=== PATIENT | female | born 1965 | race Caucasian/White ===

== ENCOUNTER 2017-12-14 22:00 | Inpatient (IN) | payer BC ==
[2017-12-14] MEDS ORDERED: Sodium Chloride 0.9% 10 ML Syringe FLUSH PRN (22:37)
[2017-12-14] MEDS ORDERED: Ondansetron 4 MG/2 ML SDV IVPUSH ONE ×2 (22:37→23:58)
[2017-12-14] MEDS ORDERED: Sodium Chloride 0.9% 1,000 ML IV ONE (22:54)
[2017-12-14] MEDS ORDERED: HYDROmorphone 1 MG/ML Syringe IVPUSH ONE (22:57)
[2017-12-14] MEDS ORDERED: cefTRIAXone 1 GM Vial IVPUSH ONE (23:00)
[2017-12-14] MEDS ORDERED: Iopamidol 612 MG/ML 100 ML Bottle IVPUSH ONE (23:01)
--- NOTE | 2017-12-14 23:01 | EDM.PDOC ---
ED HPI GENERAL MEDICAL PROBLEM - General Chief Complaint: Fever Stated Complaint: fever Time Seen by Provider: 12/14/17 22:35 Source of Information: Reports: Patient History Limitations: Reports: No Limitations - History of Present Illness INITIAL COMMENTS - FREE TEXT/NARRATIVE: Patient comes in to the emergency department with five-day history of fever up to 103-104, right lower quadrant pain decrease in urination, and body aches. Pt was seen in the clinic on Monday and was prescribed Bactrim also had CBC BMP and a urine to microscope completed. Diagnosis unexplained right lower quadrant pain with UTI. Patient was told to follow-up if not feeling better in a few days. Patient went back on Monday with increasing temperatures again right lower quadrant discomfort and decrease in urination. A second UA was completed with a urine culture at this appointment patient was switched to Cipro 500 mg twice a day for 7 days and was advised to stop the Bactrim. Again the patient had a CBC completed and was told to follow-up if not better in a few days. Pt presents tonight feeling worse and complains of the above symptoms. Last urination was greater than 30 hours ago. Denies any burning sensation or flank discomfort. Has been diaphoretic related to the discomfort and fever. Also becoming SOB with activity and right upper chest discomfort with deep breaths. Onset: Gradual Quality: Reports: Sharp Severity: Severe Improves with: Reports: Rest Worsens with: Reports: Movement Associated Symptoms: Reports: Diaphoresis, Fever/Chills, Malaise, Nausea/ Vomiting, Shortness of Breath (with activity ). Denies: Seizure Treatments PERIOPERATIVE TECH: Reports: Acetaminophen - Related Data Allergies Allergy/AdvReac Type Severity Reaction Status Date / Time codeine Allergy Stomach Verified 12/14/17 22:37 Upset Home Meds: Home Meds Albuterol [Proventil HFA] 2 puff INH Q4H PRN 03/07/14 [History] amLODIPine [Norvasc] 5 mg PO DAILY 03/07/14 [History] Gabapentin [Neurontin] 300 mg PO DAILY 09/19/16 [History] Metoprolol Succinate [Toprol XL] 25 mg PO DAILY 09/19/16 [History] buPROPion [Wellbutrin XL] 150 mg PO BEDTIME 09/19/16 [History] Past Medical History HEENT History: Reports: Impaired Vision Cardiovascular History: Reports: Hypertension Gastrointestinal History: Reports: Bowel Obstruction Other Genitourinary History: h Musculoskeletal History: Reports: Arthritis, RA Other Musculoskeletal History: knee pain Oncologic (Cancer) History: Reports: Breast - Past Surgical History HEENT Surgical History: Reports: Eye Surgery Female Surgical History: Reports: Breast Implant, Mastectomy Social & Family History - Tobacco Use Smoking Status *Q: Never Smoker Second Hand Smoke Exposure: No - Alcohol Use Days Per Week of Alcohol Use: 0 - Recreational Drug Use Recreational Drug Use: No ED ROS GENERAL - Review of Systems Review Of Systems: See Below Constitutional: Reports: Fever, Chills, Malaise, Diaphoresis, Decreased Appetite HEENT: Reports: No Symptoms Respiratory: Reports: No Symptoms Cardiovascular: Reports: No Symptoms Endocrine: Reports: No Symptoms GI/Abdominal: Reports: Abdominal Pain (RLQ), Decreased Appetite, Nausea. Denies : Black Stool, Bloody Stool, Diarrhea, Difficulty Swallowing, Distension, Mucous in Stool, Stool Incontinence, Vomiting : Reports: No Symptoms Musculoskeletal: Reports: No Symptoms Skin: Reports: Diaphoresis Neurological: Reports: No Symptoms Psychiatric: Reports: No Symptoms Hematologic/Lymphatic: Reports: No Symptoms Immunologic: Reports: No Symptoms ED EXAM, GENERAL - Physical Exam Exam: See Below Exam Limited By: No Limitations General Appearance: Alert, WD/WN, No Apparent Distress Head: Atraumatic, Normocephalic Neck: Normal Inspection, Supple, Non-Tender, Full Range of Motion Respiratory/Chest: No Respiratory Distress, Lungs Clear, Normal Breath Sounds, No Accessory Muscle Use, Chest Non-Tender. No: Respiratory Distress, Crackles, Rales, Rhonchi, Wheezing, Accessory Muscle Use Cardiovascular: Tachycardia GI/Abdominal: Guarding, Rebound, Tender Back Exam: Normal Inspection Extremities: Normal Inspection, Normal Range of Motion, Normal Capillary Refill Neurological: Alert, Oriented, CN II-XII Intact Skin Exam: Cool, Diaphoretic EKG INTERPRETATION EKG Date: 12/14/17 Rate (Beats/Min): 129 Course - Vital Signs Last Recorded V/S: Last Vital Signs Temp 38.1 C 12/15/17 00:10 Pulse 130 H 12/15/17 00:10 Resp 22 H 12/14/17 22:35 BP 152/74 H 12/15/17 00:10 Pulse Ox 96 12/15/17 00:10 - Orders/Labs/Meds Orders: Active Orders 24 hr Category Date Time Status Admission Status [Patient Status] [ADT] Routine ADT 12/15/17 01:23 Active EKG 12 Lead [EKG Documentation Completion] [RC] URGENT Care 12/14/17 23:27 Active Abdomen Pelvis w Cont [CT] Stat Exams 12/14/17 22:37 Taken Chest 2V [CR] Stat Exams 12/14/17 22:20 Taken CULTURE BLOOD [BC] Stat Lab 12/14/17 22:49 Results CULTURE BLOOD [BC] Stat Lab 12/14/17 22:55 Results Sodium Chloride 0.9% [Saline Flush] Med 12/14/17 22:37 Active 10 ml FLUSH ASDIRECTED PRN Blood Culture x2 Reflex Set [OM.PC] Stat Oth 12/14/17 22:46 Ordered Peripheral IV Insertion Adult [OM.PC] Routine Oth 12/14/17 22:37 Ordered Medication Orders Sodium Chloride (Saline Flush) 10 ml FLUSH ASDIRECTED PRN PRN Reason: Keep Vein Open Labs: Laboratory Tests 12/14/17 12/14/17 12/14/17 Range/Units 22:49 22:49 22:49 WBC 4.4 (4.0-10.0) x10^3/uL RBC 4.10 (4.00-5.50) x10^6/uL Hgb 13.0 (12.0-16.0) g/dL Hct 39.8 (33.0-47.0) % MCV 97.1 H (78.0-93.0) fL MCH 31.7 (26.0-32.0) pg MCHC 32.7 (32.0-36.0) g/dL RDW Coeff of [place] 13.2 (10.0-15.0) % Plt Count 214 (130-400) x10^3/uL Neut % (Auto) 54.8 (50.0-80.0) % Lymph % (Auto) 31.1 (25.0-50.0) % [place] % (Auto) 12.3 H (2.0-11.0) % Eos % (Auto) 1.6 (0.0-4.0) % Baso % (Auto) 0.2 (0.2-1.2) % Sodium 141 (136-145) mmol/L Potassium 4.2 (3.5-5.1) mmol/L Chloride 107 (98-107) mmol/L Carbon Dioxide 23 (21-32) mmol/L BUN 24 H (7-18) mg/dL Creatinine 0.7 (0.55-1.02) mg/dL Est Cr Clr Drug Dosing 88.01 mL/min Estimated GFR (MDRD) > 60 Glucose 104 (74-106) mg/dL Lactic Acid 2.4 H* (0.4-2.0) mmol/L Calcium 9.2 (8.5-10.1) mg/dL Corrected Calcium 10.32 H (8.5-10.1) mg/dL Total Bilirubin 0.7 (0.2-1.0) mg/dL AST 98 H (15-37) U/L ALT 96 H (14-59) U/L Alkaline Phosphatase 100 (46-116) U/L Troponin I < 0.017 (<=0.056) ng/mL Total Protein 6.8 (6.4-8.2) g/dL Albumin 2.6 L (3.4-5.0) g/dL Globulin 4.2 Albumin/Globulin Ratio 0.62 Urine Color (YELLOW) Urine Appearance (CLEAR) Urine pH (5.0-8.0) Ur Specific [place] Urine Protein (NEGATIVE) mg/dL Urine Glucose (UA) (NEGATIVE) mg/dL Urine Ketones (NEGATIVE) mg/dL Urine Occult Blood (NEGATIVE) Urine Nitrite (NEGATIVE) Urine Bilirubin (NEGATIVE) Urine Urobilinogen (0.2) EU/dL Ur Leukocyte Esterase (NEGATIVE) Urine RBC (NOT SEEN) /HPF Urine WBC (NOT SEEN) /HPF Ur Squamous Epith Cells (NEGATIVE) /HPF Urine Bacteria (NEGATIVE) /HPF Urine Mucus (NEGATIVE) /LPF 12/15/17 Range/Units 00:08 WBC (4.0-10.0) x10^3/uL RBC (4.00-5.50) x10^6/uL Hgb (12.0-16.0) g/dL Hct (33.0-47.0) % MCV (78.0-93.0) fL MCH (26.0-32.0) pg MCHC (32.0-36.0) g/dL RDW Coeff of [place] (10.0-15.0) % Plt Count (130-400) x10^3/uL Neut % (Auto) (50.0-80.0) % Lymph % (Auto) (25.0-50.0) % [place] % (Auto) (2.0-11.0) % Eos % (Auto) (0.0-4.0) % Baso % (Auto) (0.2-1.2) % Sodium (136-145) mmol/L Potassium (3.5-5.1) mmol/L Chloride (98-107) mmol/L Carbon Dioxide (21-32) mmol/L BUN (7-18) mg/dL Creatinine (0.55-1.02) mg/dL Est Cr Clr Drug Dosing mL/min Estimated GFR (MDRD) Glucose (74-106) mg/dL Lactic Acid (0.4-2.0) mmol/L Calcium (8.5-10.1) mg/dL Corrected Calcium (8.5-10.1) mg/dL Total Bilirubin (0.2-1.0) mg/dL AST (15-37) U/L ALT (14-59) U/L Alkaline Phosphatase (46-116) U/L Troponin I (<=0.056) ng/mL Total Protein (6.4-8.2) g/dL Albumin (3.4-5.0) g/dL Globulin Albumin/Globulin Ratio Urine Color Yellow (YELLOW) Urine Appearance Slightly cloudy H (CLEAR) Urine pH 5.5 (5.0-8.0) Ur Specific [place] 1.025 Urine Protein 30 H (NEGATIVE) mg/dL Urine Glucose (UA) Negative (NEGATIVE) mg/dL Urine Ketones 15 H (NEGATIVE) mg/dL Urine Occult Blood Negative (NEGATIVE) Urine Nitrite Negative (NEGATIVE) Urine Bilirubin Large H (NEGATIVE) Urine Urobilinogen 1.0 (0.2) EU/dL Ur Leukocyte Esterase Negative (NEGATIVE) Urine RBC 0-5 (NOT SEEN) /HPF Urine WBC 0-5 (NOT SEEN) /HPF Ur Squamous Epith Cells Moderate H (NEGATIVE) /HPF Urine Bacteria Moderate H (NEGATIVE) /HPF Urine Mucus Few H (NEGATIVE) /LPF Meds: Medications Generic Name Dose Route Start Last Admin Trade Name Freq PRN Reason Stop Dose Admin Sodium Chloride 10 ml 12/14/17 22:37 Saline Flush FLUSH ASDIRECTED PRN Keep Vein Open Discontinued Medications Generic Name Dose Route Start Last Admin Trade Name Allison PRN Reason Stop Dose Admin Ceftriaxone Sodium 1 gm 12/14/17 23:00 12/14/17 23:57 Rocephin IVPUSH 12/14/17 23:01 1 gm ONETIME ONE Administration Hydromorphone HCl 0.5 mg 12/14/17 22:57 12/14/17 23:05 Dilaudid IVPUSH 12/14/17 22:58 0.5 mg ONETIME ONE Administration Hydromorphone HCl 0.5 mg 12/14/17 23:58 12/15/17 00:11 Dilaudid IM 12/14/17 23:59 0.5 mg ONETIME ONE Administration Sodium Chloride 1,000 mls @ 1,000 mls/hr 12/14/17 22:54 12/14/17 22:56 Normal Saline IV 12/14/17 23:53 1,000 mls/hr ONETIME ONE Administration Vancomycin HCl 1,500 mg/ 250 mls @ 167 mls/hr 12/14/17 22:58 12/15/17 00:16 Sodium Chloride IV 12/15/17 00:27 167 mls/hr ONETIME ONE Administration Sodium Chloride 1,000 mls @ 1,000 mls/hr 12/15/17 00:06 12/15/17 01:14 Normal Saline IV 12/15/17 01:05 1,000 mls/hr ONETIME ONE Administration Iopamidol 100 ml 12/14/17 23:01 12/14/17 23:13 Isovue-300 (61%) IVPUSH 12/14/17 23:02 100 ml ONETIME ONE Administration Ondansetron HCl 4 mg 12/14/17 22:37 12/14/17 23:01 Zofran IVPUSH 12/14/17 22:38 4 mg ONETIME ONE Administration Ondansetron HCl 4 mg 12/14/17 23:58 12/15/17 00:02 Zofran IVPUSH 12/14/17 23:59 4 mg ONETIME ONE Administration - Radiology Interpretation Free Text/Narrative:: negative findings CT Results Date: 12/15/17 - Re-Assessments/Exams Free Text/Narrative Re-Assessment/Exam: 12/15/17 00:05 Pt continues to have pain RLQ. Second order of dilaudid provided. Pt experiencing nausea after Rocephin a second dose of zofran given. Pt will try to urinate first 1L NS completed 12/15/17 00:06 Departure - Departure Time of Disposition: 01:55 Disposition: Admitted As Inpatient 66 Clinical Impression: Fever and chills, Elevated lactic acid level, Tachycardia, Complicated urinary tract infection - Discharge Information Referrals: Amna Justin MD [Primary Care Provider] - Forms: ED Department Discharge - Problem List Review Problem List Initiated/Reviewed/Updated: Yes - My Orders Last 24 Hours: My Active Orders 12/14/17 22:20 Chest 2V [CR] Stat 12/14/17 22:37 Abdomen Pelvis w Cont [CT] Stat Sodium Chloride 0.9% [Saline Flush] 10 ml FLUSH ASDIRECTED PRN Peripheral IV Insertion Adult [OM.PC] Routine 12/14/17 22:46 Blood Culture x2 Reflex Set [OM.PC] Stat 12/14/17 22:49 CULTURE BLOOD [BC] Stat 12/14/17 22:55 CULTURE BLOOD [BC] Stat 12/14/17 23:27 EKG 12 Lead [EKG Documentation Completion] [RC] URGENT 12/15/17 01:23 Admission Status [Patient Status] [ADT] Routine - Assessment/Plan Last 24 Hours: My Active Orders 12/14/17 22:20 Chest 2V [CR] Stat 12/14/17 22:37 Abdomen Pelvis w Cont [CT] Stat Sodium Chloride 0.9% [Saline Flush] 10 ml FLUSH ASDIRECTED PRN Peripheral IV Insertion Adult [OM.PC] Routine 12/14/17 22:46 Blood Culture x2 Reflex Set [OM.PC] Stat 12/14/17 22:49 CULTURE BLOOD [BC] Stat 12/14/17 22:55 CULTURE BLOOD [BC] Stat 12/14/17 23:27 EKG 12 Lead [EKG Documentation Completion] [RC] URGENT 12/15/17 01:23 Admission Status [Patient Status] [ADT] Routine Assessment:: 1. Severe RLQ abd pain x5 days 2. Unknown etiology of Fever x5 and continues to remain up to 103-104 despite abx treatment 3. Reduced urine output. UA in clinic- WBC 6-10, epithelial cells many, bacteria >50, cast hyaline 3-5, cast Granular 0-2, Bilirubin large, ketone 80. Negative blood, Protein 30mg/dl. Pt was given Bactrim on 12-11 and switched to cipro on 12/13 due to pt not feeling better. CBC and CMP completed in clinic were essentially negative. Plan: 1. Chest xray completed and reviewed with pt 2. IV inserted in ER 3. IV fluid bolus completed 4. Pain medications provided 5. Records requested from [facility] 6. Labs completed in ER 7. Sepsis protocol utilized for pt has rapid pulse, increased respirations, diaphoresis, and fever for past 5 days. 52-year-old female given to the emergency Department with the above signs and symptoms. Upon arrival to the emergency department patient was given a fluid bolus, chest x-ray ,CT of the abdomen and pelvis, and labs. CT results were inconclusive, urine shows an UTI-consistent with her last 2 UAs that have been completed earlier in the week however the prelim of the urine culture is showing no growth currently. Sepsis protocol was followed based on patient's presentation (rapid pulse, increased respiratory rate, and fever despite taking fever reducing medication and diaphoretic). Patient was given vancomycin and Rocephin along with Dilaudid and Zofran for pain and nausea control in the ER. Patient's heart rate remained elevated throughout the emergency stay ranging from 110s to 130s. After antibiotic was given approximately 1 hour along with pain medication patient's heart rate rested in the 110s. Patient's fever was reduced by taking Tylenol prior to arrival-she did not need any fever reduction medications in the emergency department. Patient received 1 L fluid bolus with a second liter hanging upon admitted to the floor. Contact was made with [facility] in [place] with Dr. Wilks hospitalist who suggested admitting the patient acute-care in our facility and monitor patient's response to the IV antibiotics and fever control. Currently he would not recommend any further recommendations or specialty consultation despite the elevated lactic acid, elevated LFTs, increased heart rate, and multiple antibiotic trials in the outpatient setting. Dr. Goodwin was contacted who is graciously accepted the care of the patient for further monitoring and management. Patient will be admitted inpatient status.
[2017-12-14 23:31] LABS: CHLORIDE,CL 107 mmol/L (98-107); SODIUM,NA 141 mmol/L (136-145)
[2017-12-14] MEDS ORDERED: HYDROmorphone 1 MG/ML Syringe IM ONE (23:58)
[2017-12-15] MEDS ORDERED: Sodium Chloride 0.9% 1,000 ML IV ONE (00:06)
[2017-12-15] MEDS ORDERED: Sodium Chloride 0.9% 1,000 ML IV SCH (04:15)
[2017-12-15] MEDS ORDERED: HYDROmorphone 1 MG/ML Syringe IVPUSH ONE (04:29)
[2017-12-15 07:18] LABS: CHLORIDE,CL 110 mmol/L (98-107); SODIUM,NA 141 mmol/L (136-145)
--- NOTE | 2017-12-15 07:34 | PCM.HP ---
H&P History of Present Illness - General Date of Service: 12/15/17 Admit Problem/Dx: Admission Diagnosis/Problem Admission Diagnosis/Problem UTI, Urinary tract infectious disease Source of Information: Patient History Limitations: Reports: No Limitations - History of Present Illness Initial Comments - Free Text/Narative: Ms. Jackson is a 52 yo female who presented to the ER for evaluation of ongoing fever over the past 5 days. Tmax 104.2. Temps have consistently been running in the 101-104 range; she can get them down to 99 with tylenol but then they increase again. She has also had subjective fever and chills. She has had some right flank pain that has not been worsening over the past 2-3 days. Pain is consistent but she also notes that she is gassy. Her last bowel movement was 3 days ago and she typically goes every other day. Her bowel movement 3 days ago was a large amount of diarrhea. She vomited last night in the ER after her dose of ceftriaxone but otherwise has not had any vomiting. No blood in the emesis or the stool. She had been seen in clinic twice over the past week and diagnosed with a UTI. She was started on bactrim on 12/11 and then transitioned to ciprofloxacin 12/13. Due to ongoing symptoms, she presented to the ER. She denies any dysuria, frequency, or urgency over the course of this week. She has had decreased urine output compared to usual but has not been eating and drinking very well. She denies any previous UTI, at least in the recent past. Yesterday, she did note some dyspnea on exertion when she tried to get out and run some errands. Separate to this, she had some left shoulder pain radiating down the arm. This occurred on 2 occasions yesterday (am and around noon) and both were at rest. No chest pain with this. She has struggled with bilateral knee DJD and this has been slightly worse over the past few weeks. She was started on tramadol by her PCP with some relief in symptoms. She has been more itchy but has had no rash. She has not had any increased muscle tension, stiffness, or myalgias. Right Lower Abdominal Pain Score (Numeric/FACES): 6 - Related Data Allergies/Adverse Reactions: Allergies Allergy/AdvReac Type Severity Reaction Status Date / Time codeine Allergy Stomach Verified 12/14/17 22:37 Upset Home Medications: Home Meds Albuterol [Proventil HFA] 2 puff INH Q4H PRN 03/07/14 [History] amLODIPine [Norvasc] 5 mg PO DAILY 03/07/14 [History] Gabapentin [Neurontin] 300 mg PO DAILY 09/19/16 [History] Metoprolol Succinate [Toprol XL] 25 mg PO DAILY 09/19/16 [History] buPROPion [Wellbutrin XL] 150 mg PO BEDTIME 09/19/16 [History] Past Medical History HEENT History: Reports: Impaired Vision Cardiovascular History: Reports: CAD, High Cholesterol, Hypertension Respiratory History: Reports: SOB Gastrointestinal History: Reports: Bowel Obstruction, Chronic Constipation, GERD Genitourinary History: Reports: Chronic Renal Insuffiency Musculoskeletal History: Reports: Arthritis Other Musculoskeletal History: knee pain Neurological History: Reports: None Psychiatric History: Reports: Anxiety, Depression Endocrine/Metabolic History: Reports: Obesity/BMI 30+ Hematologic History: Reports: None Oncologic (Cancer) History: Reports: Breast Dermatologic History: Reports: None - Infectious Disease History Infectious Disease History: Reports: Chicken Pox - Past Surgical History HEENT Surgical History: Reports: Eye Surgery GI Surgical History: Reports: Cholecystectomy Female Surgical History: Reports: Breast Implant, Cystectomy, Mastectomy Social & Family History - Family History Cardiac: Reports: CAD, [place] Musculoskeletal: Reports: Arthritis Neurological: Reports: CVA Endocrine/Metabolic: Reports: Diabetes, type II - Tobacco Use Smoking Status *Q: Never Smoker Second Hand Smoke Exposure: No - Caffeine Use Caffeine Use: Reports: Soda - Alcohol Use Alcohol Use History: No Days Per Week of Alcohol Use: 0 Alcohol Use in Last Twelve Months: No - Recreational Drug Use Recreational Drug Use: No - Living Situation & Occupation Living situation: Reports: , with Family (17 year old daughter) Occupation: Employed ([employer]) H&P Review of Systems - Review of Systems: Review Of Systems: See Below General: Reports: Fever, Chills, Malaise, Decreased Appetite HEENT: Reports: No Symptoms Pulmonary: Reports: Shortness of Breath. Denies: Pleuritic Chest Pain, Cough Cardiovascular: Reports: No Symptoms Gastrointestinal: Reports: Abdominal Pain, Diarrhea, Nausea, Vomiting Genitourinary: Reports: No Symptoms Musculoskeletal: Reports: No Symptoms Skin: Reports: No Symptoms Psychiatric: Reports: No Symptoms Neurological: Reports: No Symptoms Exam - Exam Exam: See Below - Vital Signs Vital Signs: Last Vital Signs Temp 37.1 C 12/15/17 06:00 Pulse 95 12/15/17 06:00 Resp 20 12/15/17 06:00 BP 102/49 L 12/15/17 06:00 Pulse Ox 97 12/15/17 07:09 Weight: 122.924 kg - Exam General: Alert, Oriented, Cooperative HEENT: Conjunctiva Clear, Mucosa Moist & [place], Pupils Equal, Pupils Reactive Neck: Supple, Trachea Midline. No: Lymphadenopathy, Thyromegaly Lungs: Clear to Auscultation, Normal Respiratory Effort Cardiovascular: Regular Rhythm, Normal S1, Normal S2, Tachycardia. No: Systolic Murmur, Diastolic Murmur GI/Abdominal Exam: Normal Bowel Sounds, Soft, No Organomegaly, No Distention, No Mass, Other (tenderness to palpation in the right lateral abdominal wall; no CVA or true RLQ tenderness; negative Butler's; no McBurney point tenderness; no rebound, rigidity, or guarding) Extremities: Normal Inspection, Non-Tender, No Pedal Edema, Normal Capillary Refill Peripheral Pulses: 2+: Radial (L), Radial (R) Skin: Warm, Intact, Moist - Patient Data Lab Results Last 24 hrs: Laboratory Results - last 24 hr 12/15/17 12/15/17 12/15/17 Range/Units 06:15 06:15 06:15 WBC 3.9 L (4.0-10.0) x10^3/uL RBC 3.31 L (4.00-5.50) x10^6/uL Hgb 10.4 L D (12.0-16.0) g/dL Hct 33.0 (33.0-47.0) % MCV 99.7 H (78.0-93.0) fL MCH 31.4 (26.0-32.0) pg MCHC 31.5 L (32.0-36.0) g/dL RDW Coeff of [place] 13.2 (10.0-15.0) % Plt Count 172 (130-400) x10^3/uL Neut % (Auto) 60.7 (50.0-80.0) % Lymph % (Auto) 23.6 L (25.0-50.0) % [place] % (Auto) 14.1 H (2.0-11.0) % Eos % (Auto) 1.3 (0.0-4.0) % Baso % (Auto) 0.3 (0.2-1.2) % Sodium 141 (136-145) mmol/L Potassium 4.2 (3.5-5.1) mmol/L Chloride 110 H (98-107) mmol/L Carbon Dioxide 23 (21-32) mmol/L BUN 19 H (7-18) mg/dL Creatinine 0.6 (0.55-1.02) mg/dL Est Cr Clr Drug Dosing 94.71 mL/min Estimated GFR (MDRD) > 60 Glucose 95 (74-106) mg/dL Lactic Acid 0.8 (0.4-2.0) mmol/L Calcium 8.3 L (8.5-10.1) mg/dL Corrected Calcium 9.82 (8.5-10.1) mg/dL Total Bilirubin 0.5 (0.2-1.0) mg/dL AST 67 H (15-37) U/L ALT 71 H (14-59) U/L Alkaline Phosphatase 83 (46-116) U/L C-Reactive Protein (<=0.9) mg/dL Total Protein 5.8 L (6.4-8.2) g/dL Albumin 2.1 L (3.4-5.0) g/dL Globulin 3.7 Albumin/Globulin Ratio 0.57 //18 Range/Units 06:15 WBC (4.0-10.0) x10^3/uL RBC (4.00-5.50) x10^6/uL Hgb (12.0-16.0) g/dL Hct (33.0-47.0) % MCV (78.0-93.0) fL MCH (26.0-32.0) pg MCHC (32.0-36.0) g/dL RDW Coeff of [place] (10.0-15.0) % Plt Count (130-400) x10^3/uL Neut % (Auto) (50.0-80.0) % Lymph % (Auto) (25.0-50.0) % [place] % (Auto) (2.0-11.0) % Eos % (Auto) (0.0-4.0) % Baso % (Auto) (0.2-1.2) % Sodium (136-145) mmol/L Potassium (3.5-5.1) mmol/L Chloride (98-107) mmol/L Carbon Dioxide (21-32) mmol/L BUN (7-18) mg/dL Creatinine (0.55-1.02) mg/dL Est Cr Clr Drug Dosing mL/min Estimated GFR (MDRD) Glucose (74-106) mg/dL Lactic Acid (0.4-2.0) mmol/L Calcium (8.5-10.1) mg/dL Corrected Calcium (8.5-10.1) mg/dL Total Bilirubin (0.2-1.0) mg/dL AST (15-37) U/L ALT (14-59) U/L Alkaline Phosphatase (46-116) U/L C-Reactive Protein 0.6 (<=0.9) mg/dL Total Protein (6.4-8.2) g/dL Albumin (3.4-5.0) g/dL Globulin Albumin/Globulin Ratio Result Diagrams: 12/15/17 06:15 12/15/17 06:15 *Q Meaningful Use (ADM) - VTE *Q VTE Criteria *Q: - Stroke *Q Stroke Criteria *Q: - AMI *Q AMI Criteria *Q: - Problem List (1) SIRS (systemic inflammatory response syndrome) SNOMED Code(s): 197755141 ICD Code: R65.10 - SIRS OF NON-INFECTIOUS ORIGIN W/O ACUTE ORGAN DYSFUNCTION Status: Acute Current Visit: Yes Problem Details: - Meets SIRS criteria with fever and tachycardia. WBC normal. - Overall, seems more consistent with a viral syndrome. Main differential at this point would be PE in light of her shortness of breath and tachycardia. Consider serotonin syndrome or other more uncommon etiology but she does not have other symptoms to suggest this. - She has had no UTI symptoms and her right side pain seems more in an MSK location, especially with a negative CT scan. Otherwise, she has no symptoms of a focal bacterial infection. - Will check CRP today to help clarify. - If CRP is normal, will hold off on further antibiotics and see how she does throughout the next 24 hours. - If abnormal, will continue antibiotics. - Blood cultures are pending. - Her vitals are stable and lactate is normal; therefore, will d/c IV fluids and see how she does with drinking fluids today. (2) Elevated lactic acid level SNOMED Code(s): 9085624 ICD Code: R79.89 - OTHER SPECIFIED ABNORMAL FINDINGS OF BLOOD CHEMISTRY Status: Acute Current Visit: Yes Problem Details: - Lactate high on ER presentation. - Down to normal on recheck this am. - Likely secondary to dehydration. Does not seem to be reflecting end organ damage. - D/C IV fluids today and allow her to drink ad karli. (3) Dyspnea on exertion SNOMED Code(s): 42609772 ICD Code: R06.09 - OTHER FORMS OF DYSPNEA Status: Acute Current Visit: Yes Problem Details: - Has had this in the past with negative work-ups. - Possibly related to SIRS or tachycardia in and of itself. See below for rule out of any acute cardiac process. CXR does not show pneumonia and she has no symptoms for pneumonia. - However, as above, considering PE as a potential diagnosis in light of risk factor of being on tamoxifen. - D-dimer will be obtained as she is overall low risk. If this is positive, she understands a CT chest will be needed. - Will see how she does walking today and consider further work-up if this persists. (4) Complicated urinary tract infection SNOMED Code(s): 94491060 ICD Code: N39.0 - URINARY TRACT INFECTION, SITE NOT SPECIFIED Status: Acute Current Visit: Yes Problem Details: - She was diagnosed with a UTI earlier in the week. - She has received 5 days of antibiotic coverage for this, which is more than adequate considering her culture is negative. - Will follow-up on final culture results. - See above for details on any further antibiotics. (5) Hypertension SNOMED Code(s): 67154889 ICD Code: I10 - ESSENTIAL (PRIMARY) HYPERTENSION Status: Chronic Current Visit: Yes Problem Details: - BP slightly low this am. - Continue metoprolol. Will hold amlodipine for now. Qualifiers: Hypertension type: essential hypertension Qualified Code(s): I10 - Essential (primary) hypertension (6) Coronary artery disease SNOMED Code(s): 47542120 ICD Code: I25.10 - ATHSCL HEART DISEASE OF [place] CORONARY ARTERY W/O ANG PCTRS Status: Chronic Current Visit: Yes Problem Details: - Shoulder pain described is not consistent with an acute cardiac process. - Her EKG was fine and troponin negative at least 6 hours after initial symptoms. - Continue home medications. Qualifiers: Coronary Disease-Associated Artery/Lesion type: [place] artery [place] vs. transplanted heart: [place] heart Associated angina: without angina Qualified Code(s): I25.10 - Atherosclerotic heart disease of [place] coronary artery without angina pectoris (7) Osteoarthritis SNOMED Code(s): 371935073 ICD Code: M19.90 - UNSPECIFIED OSTEOARTHRITIS, UNSPECIFIED SITE Status: Chronic Current Visit: Yes Problem Details: - Continue voltaren gel and etodolac. Hold tramadol and tizanidine. Qualifiers: Osteoarthritis location: multiple joints Osteoarthritis type: primary Qualified Code(s): M15.0 - Primary generalized (osteo)arthritis (8) IBS (irritable bowel syndrome) SNOMED Code(s): 66194346 ICD Code: K58.9 - IRRITABLE BOWEL SYNDROME WITHOUT DIARRHEA Status: Chronic Current Visit: Yes Problem Details: - Continue amitiza. Qualifiers: Irritable bowel syndrome type: unspecified Qualified Code(s): K58.9 - Irritable bowel syndrome without diarrhea (9) History of breast cancer SNOMED Code(s): 150959817 ICD Code: Z85.3 - PERSONAL HISTORY OF MALIGNANT NEOPLASM OF BREAST Status: Chronic Current Visit: Yes Problem Details: - If work-up negative for PE, then will continue tamoxifen. - If positive, will hold and talk with her oncologist. Problem List Initiated/Reviewed/Updated: Yes Orders Last 24hrs: Active Orders 24 hr Category Date Time Status Patient Status [ADT] Routine ADT 12/15/17 02:02 Active Cardiac Monitoring [RC] 06,10,14,18,22,02 Care 12/15/17 02:05 Active Notify Provider Vital Signs [RC] ASDIRECTED Care 12/15/17 07:09 Active Oxygen Therapy [RC] PRN Care 12/15/17 07:09 Active Pulse Oximetry [RC] 06,10,14,18,22,02 Care 12/15/17 02:03 Active Supplemental O2 [Oxygen Therapy] [RC] ASDIRECTED Care 12/15/17 06:15 Active Up With Assistance [RC] ASDIRECTED Care 03/23/18 07:08 Active Up ad Karli [RC] 08,20 Care 12/15/17 02:02 Active VTE/DVT Education [RC] PER UNIT ROUTINE Care 12/15/17 07:09 Active Vital Signs [RC] Care 12/15/17 02:02 Active Vital Signs [RC] Q4H Care 12/15/17 07:09 Active Regular Diet [DIET] Diet 12/15/17 Breakfast Active D-DIMER QUANTITATIVE [COAG] Routine Lab 12/15/17 07:07 Ordered Sodium Chloride 0.9% [Normal Saline] 1,000 ml Med 12/15/17 04:15 Stop Req IV ASDIRECTED Resuscitation Status Routine Resus Stat 12/15/17 02:02 Ordered Medication Orders Sodium Chloride (Saline Flush) 10 ml FLUSH ASDIRECTED PRN PRN Reason: Keep Vein Open Assessment/Plan Comment:: 52 yo female admitted with SIRS of unknown source. She is feeling slightly better this morning but is still diaphoretic. See details under problems above. Will obtain CRP and d-dimer today to complete the work-up. She wishes to be full code. She is admitted under acute status - anticipate dismissal home tomorrow. Holding off on VTE prophylaxis until we clarify any presence of acute PE. If she does not have a PE, will do lovenox for VTE prophylaxis.
[2017-12-15] MEDS ORDERED: Iopamidol 612 MG/ML 100 ML Bottle IVPUSH ONE (08:33)
[2017-12-15] MEDS: buPROPion 150 MG Tab.ER PO SCH (09:52)
[2017-12-15] MEDS: ETODOLAC 400 MG PO SCH ×2 (10:52→17:34)
--- NOTE | 2017-12-15 11:55 | PCM.SN ---
- Free Text/Narrative Note: CRP negative. D-dimer elevated so CTA recommended. This was then negative for PE or any other acute findings. More likely viral illness than anything else. Will hold off on further antibiotics at this time and observe throughout the day today. If afebrile and blood cultures negative, anticipate discharge home tomorrow. Patient will be signed out to Dr. Selena Lindsay for care over the weekend.
[2017-12-15] MEDS: Diclofenac Sodium 1% Gel 100 GM Tube TOP SCH ×3 (12:02→20:48)
[2017-12-15] MEDS: Acetaminophen 325 MG Tab PO PRN ×2 (15:17→21:02)
[2017-12-15] MEDS: LUBIPROSTONE 24 MCG PO SCH (17:34)
[2017-12-15] MEDS ORDERED: Melatonin 3 MG Tab PO SCH (20:00)
[2017-12-15] MEDS ORDERED: Metoprolol Succinate 25 MG Tab.ER PO SCH (20:00)
[2017-12-15] MEDS ORDERED: Gabapentin 300 MG Cap PO SCH (20:00)
[2017-12-15] MEDS ORDERED: amLODIPine 5 MG Tab PO SCH (21:00)
[2017-12-16] MEDS: Acetaminophen 325 MG Tab PO PRN (04:04)
[2017-12-16] MEDS: Diclofenac Sodium 1% Gel 100 GM Tube TOP SCH (07:29)
[2017-12-16] MEDS: buPROPion 150 MG Tab.ER PO SCH (07:29)
[2017-12-16] MEDS: ETODOLAC 400 MG PO SCH (07:30)
[2017-12-16] MEDS: LUBIPROSTONE 24 MCG PO SCH (07:30)
[2017-12-16 10:09] VITALS: BP 138/93
--- NOTE | 2017-12-16 19:03 | DISCH ---
PRIMARY DISCHARGE DIAGNOSES: 1. Fevers and SIRS with no infection identified. T-max during her stay was 100.5, but she was having some sweating, ruled out for pneumonia and GI infections by CT scans. White count was low normal. Henry testing was negative. She had been ruled out for urinary infection. Blood cultures and influenza testing were also negative. 2. Underlying depression, recently started on Wellbutrin a couple of weeks ago. Potentially, this contributed to her sweating episodes. 3. Elevated lactic acid, resolved with IV fluids, likely secondary to dehydration. 4. Dyspnea on exertion, improved. CT negative for pulmonary embolism. 5. Previous concern for urinary tract infection. She had already completed 5 days of antibiotics with culture being negative. 6. History of breast cancer, on tamoxifen but no chemotherapy in remission. 7. Essential hypertension. 8. Mixed urinary incontinence. 9. History of irritable bowel syndrome with constipation. No bowel movements during her stay, but she was eating poorly. 10.History of weight loss. She reports at least a 10-pound weight loss over the last several weeks. 11.Generalized arthritis especially in her knees. The patient says she might even have rheumatoid arthritis, however, I did not see a history of this. 12.Reported history of chronic kidney disease with creatinine up to 1.4 back in 2016. However, her creatinine on this stay was normal at 0.6. 13.Hyperlipidemia. 14.Reported history of coronary artery disease. She had no further concern for chest pain, although she did have some shoulder pain. 15.Right lower quadrant abdominal pain, ruled out for appendicitis. Pain was right above the right iliac crest, unknown etiology. REASON FOR ADMISSION: On the date of admission, this 52-year-old who had been feeling unwell at home for the previous week, came into the emergency room. She has already been in the clinic a couple of times, had been diagnosed with UTI. She was admitted. She was rehydrated with IV fluids. There was a report of a T- max of like 104 at home, but she had no fevers to this degree while in the hospital. She had been on tramadol for pain control. She denies taking her muscle relaxant. She had recently a couple weeks previous been started on Wellbutrin and she also had been taking Lodine for arthritis, pains. She is also on Neurontin as well. She began having more sweats, just overall not feeling well, feeling fatigued, having about 3 headaches, but no current headache. No neck pain. No limited neck range of motion. No cough. HOSPITAL COURSE: The patient was admitted. She was given IV fluids. She had lab work monitored. Her white count was actually on the lower side at 3.3, hemoglobin was 10.7 on discharge, platelets were 179. D-dimer was mildly positive and CT was negative for PE. Lactic acid normalized from 2.4 to 0.8 after IV fluids. Albumin was low at 2.1. UA showed 0-5 rbcs and wbcs and mono screen again was negative. The patient therefore was discharged home. We did discuss doing CMV testing. Unfortunately, she had left before lab was able to redraw. Working diagnosis is that a viral illness may be causing her symptoms or possibly medications, so she was instructed to cut back on her Wellbutrin and avoid tramadol until her followup with her primary care provider. She was instructed that if she did have something like CMV, there was no treatment other than time. The patient would like to go home to continue recovery. She was advised to take no more than 4000 mg of Tylenol a day for discomfort and she may continue on her etodolac. PHYSICAL EXAMINATION: Vital signs: Discharge vital signs include a temperature of 97.1, pulse 89, blood pressure 138/93, respiratory rate 16, and O2 of 97% on room air. General: She is in no acute distress. Cardiac: Heart regular rate and rhythm. S1, S2 without murmur. Respiratory: Lungs sounds are clear to auscultation bilaterally without crackles or wheezes. GI: Abdomen has positive bowel sounds. Soft and nontender other than some discomfort over the right iliac crest area into the right mid axillary line with no rebound or guarding, no masses. Mental status: She is alert and orientated x3. Extremities: Warm and dry. No edema. DISCHARGE PLANS AND INSTRUCTIONS: She may follow up in the clinic with her primary care provider in the next week. She has an appointment with her joint specialist on Monday. We will decrease her Wellbutrin to 75 mg daily. If she continues to have symptoms, they can go ahead and draw the CMV test. She may restart her Amitiza and tamoxifen on discharge as it was not available in the hospital. She should eat a diet as tolerated and she was given note to be off work until 12/19. . MKA: 12/16/2017 17:19:35 MODL: 12/16/2017 18:51:08 /[id number]
== END 2017-12-16 10:35 | disposition home or self-care (01) | DRG 722 ==
LOC: VM.ED 22:00 → VM.MS 12-15 01:23 → UNDOADMIN 12-15 01:50 → VM.MS 12-15 01:50
PROVIDERS: ADMIT Family Medicine; ATTEND Family Medicine
DX: R50.9 Fever, unspecified (principal); R65.10 Systemic inflammatory response syndrome (SIRS) of non-infectious origin without acute organ dysfunction; N39.0 Urinary tract infection, site not specified; R10.31 Right lower quadrant pain; R79.89 Other specified abnormal findings of blood chemistry; R06.09 Other forms of dyspnea; M17.0 Bilateral primary osteoarthritis of knee; K58.9 Irritable bowel syndrome, unspecified; Z85.3 Personal history of malignant neoplasm of breast; E78.5 Hyperlipidemia, unspecified; Z79.1 Long term (current) use of non-steroidal anti-inflammatories (NSAID); K21.9 Gastro-esophageal reflux disease without esophagitis; F32.9 Major depressive disorder, single episode, unspecified; F41.9 Anxiety disorder, unspecified; I25.10 Atherosclerotic heart disease of native coronary artery without angina pectoris; I12.9 Hypertensive chronic kidney disease with stage 1 through stage 4 chronic kidney disease, or unspecified chronic kidney disease; N18.9 Chronic kidney disease, unspecified; Z90.10 Acquired absence of unspecified breast and nipple; Z88.5 Allergy status to narcotic agent; Z79.899 Other long term (current) drug therapy
CPT/HCPCS: 36415; 71046; 71275; 74177; 80053; 81001; 83605; 84484; 85025; 85379; 86140; 86308; 87040; 87804; 94760; 96361; 96365; 96366; 96375; 96376; 99285; A9270-GY; J0696; J1170; J2405; J3370; J7030; J7050; Q9967

== ENCOUNTER 2018-02-08 20:35 | Inpatient (IN) | payer BC ==
[2018-02-08] MEDS ORDERED: Sodium Chloride 0.9% 10 ML Syringe FLUSH PRN (21:14)
[2018-02-08] MEDS ORDERED: Ondansetron 4 MG/2 ML SDV IVPUSH ONE (21:17)
[2018-02-08] MEDS: Lactated Ringers 1,000 ML IV SCH (22:13)
[2018-02-08] MEDS ORDERED: Morphine 4 MG/ML Syringe IVPUSH ONE (23:23)
[2018-02-08] MEDS: Orphenadrine 100 MG Tab.ER PO SCH (23:38)
[2018-02-09] MEDS: Lactated Ringers 1,000 ML IV SCH (00:27)
[2018-02-09] MEDS: oxyCODONE 5 MG Tab PO PRN ×4 (01:10→21:41)
[2018-02-09] MEDS ORDERED: Ondansetron 4 MG Tab.DIS PO PRN (01:42)
[2018-02-09] MEDS: Acetaminophen 325 MG Tab PO SCH ×5 (03:51→21:39)
--- NOTE | 2018-02-09 03:55 | EDM.PDOC ---
ED HPI GENERAL MEDICAL PROBLEM - General Chief Complaint: General Stated Complaint: unable to care for self Time Seen by Provider: 02/08/18 20:35 Source of Information: Reports: Patient History Limitations: Reports: No Limitations - History of Present Illness INITIAL COMMENTS - FREE TEXT/NARRATIVE: Pt. presents to ER after being seen at [facility] in [place] (ER). Pt. recently underwent bilateral knee replacement and has been having major problems dealing with post op pain, nausea and vomiting secondary to medications , acute on chronic low back pain, and general debility. Pt. has been convalescing at her sister's residence in [place] since the surgery. She is approx. 7 days post op. She was supposed to be doing home health/home PT but apperently they are not coming and she has not had therapy since discharge. Pt. was prescribed Eliquis postoperatively for DVT prophylaxis. According to the discharge instructions, she should be finishing this medication tomorrow but has been non-compliant, and has numerous pills left. Pt. began experiencing a headache and called 911 and was brought to [facility]. She had an extensive workup, including lab and head CT, all of which were negative. [facility] was attempting to get the pt. set up in swing bed but her insurance company hasn't determined if she is a candidate. Onset: Today Location: Reports: Head, Neck, Back, Upper Extremity, Right, Lower Extremity, Right, Generalized Quality: Reports: Ache, Burning, Dull, Pressure, Sharp, Stabbing, Throbbing Severity: Severe Worsens with: Reports: Movement Headache Pain Score (Numeric/FACES): 10 - Related Data Allergies Allergy/AdvReac Type Severity Reaction Status Date / Time codeine Allergy Stomach Verified 02/08/18 21:08 Upset Home Meds: Home Meds amLODIPine [Norvasc] 5 mg PO QPM 03/07/14 [History] Calcium Citrate/Vitamin D3 [Calcium Citrate - Vit D Tablet] 1 tab PO DAILY 12/15 [History] Cholecalciferol (Vitamin D3) [Vitamin D3] 1,000 units PO DAILY 12/15/17 [History ] Etodolac [Lodine] 400 mg PO BID 12/15/17 [History] Gabapentin [Neurontin] 300 mg PO BEDTIME 12/15/17 [History] Tamoxifen [Nolvadex] 20 mg PO BEDTIME 12/15/17 [History] Acetaminophen 650 mg PO Q6H 02/09/18 [History] Apixaban [Eliquis] 2.5 mg PO BID 02/09/18 [History] Furosemide 20 mg PO DAILY 02/09/18 [History] Metoprolol Succinate [Toprol XL] 12.5 mg PO BEDTIME 02/09/18 [History] Multivitamin [Daily Regla] 1 tab PO DAILY 02/09/18 [History] Ondansetron [Zofran ODT] 4 mg PO Q4HR PRN 02/09/18 [History] Polyethylene Glycol 3350 [MiraLAX] 3 tsp PO BID 02/09/18 [History] Sennosides/Docusate Sodium [Senna-Docusate Sodium Tablet] 1 tab PO BID 02/09/18 [History] hydrOXYzine Pamoate [Vistaril] 25 mg PO Q4H PRN 02/09/18 [History] oxyCODONE 1 - 2 tab PO Q4HR PRN 02/09/18 [History] Past Medical History HEENT History: Reports: Impaired Vision Cardiovascular History: Reports: CAD, High Cholesterol, Hypertension Respiratory History: Reports: SOB Gastrointestinal History: Reports: Bowel Obstruction, Chronic Constipation, GERD Genitourinary History: Reports: Chronic Renal Insuffiency Other Genitourinary History: h Musculoskeletal History: Reports: Arthritis Other Musculoskeletal History: knee pain Neurological History: Reports: None Psychiatric History: Reports: Anxiety, Depression Endocrine/Metabolic History: Reports: Obesity/BMI 30+ Hematologic History: Reports: None Oncologic (Cancer) History: Reports: Breast Dermatologic History: Reports: None - Infectious Disease History Infectious Disease History: Reports: Chicken Pox - Past Surgical History HEENT Surgical History: Reports: Eye Surgery GI Surgical History: Reports: Cholecystectomy Female Surgical History: Reports: Breast Implant, Cystectomy, Mastectomy Social & Family History - Family History Cardiac: Reports: CAD, VA Musculoskeletal: Reports: Arthritis Neurological: Reports: CVA Endocrine/Metabolic: Reports: Diabetes, type II - Tobacco Use Used Tobacco, but Quit: No Second Hand Smoke Exposure: No - Caffeine Use Caffeine Use: Reports: Soda - Recreational Drug Use Recreational Drug Use: No - Living Situation & Occupation Living situation: Reports: , with Family (17 year old daughter) Occupation: Employed () ED ROS GENERAL - Review of Systems Review Of Systems: See Below Constitutional: Reports: No Symptoms HEENT: Reports: No Symptoms Respiratory: Reports: No Symptoms Cardiovascular: Reports: No Symptoms Endocrine: Reports: No Symptoms GI/Abdominal: Reports: No Symptoms : Reports: No Symptoms Musculoskeletal: Reports: Other (see HPI) Skin: Reports: No Symptoms Neurological: Reports: Headache Psychiatric: Reports: No Symptoms Hematologic/Lymphatic: Reports: No Symptoms Immunologic: Reports: No Symptoms ED EXAM, GENERAL - Physical Exam Exam: See Below General Appearance: Alert, WD/WN, No Apparent Distress Ears: Normal External Exam, Normal Canal, Hearing Grossly Normal, Normal TMs Throat/Mouth: Normal Inspection, Normal Lips, Normal Teeth, Normal Gums, Normal Oropharynx, Normal Voice, No Airway Compromise Head: Atraumatic, Normocephalic Neck: Normal Inspection, Supple, Non-Tender, Full Range of Motion Respiratory/Chest: No Respiratory Distress, Lungs Clear, Normal Breath Sounds, No Accessory Muscle Use, Chest Non-Tender Cardiovascular: Normal Peripheral Pulses, Regular Rate, Rhythm, No Edema, No Gallop, No JVD, No Murmur, No Rub Peripheral Pulses: 4+: Radial (L), Radial (R) GI/Abdominal: Normal Bowel Sounds, Soft, Non-Tender, No Organomegaly, No Distention, No Abnormal Bruit, No Mass (Female) Exam: Deferred Rectal (Female) Exam: Deferred Back Exam: Normal Inspection, Decreased Range of Motion, Muscle Spasm Extremities: Leg Pain Neurological: Alert, Oriented, CN II-XII Intact, Normal Cognition, Normal Gait, Normal Reflexes, No Motor/Sensory Deficits Psychiatric: Anxious, Depressed Mood, Flat Affect, Tearful Skin Exam: Warm, Dry, Intact, Normal Color, No Rash Lymphatic: No Adenopathy Course - Vital Signs Last Recorded V/S: Last Vital Signs Temp 36.9 C 02/09/18 02:00 Pulse 81 02/09/18 02:00 Resp 18 02/09/18 02:00 BP 123/56 L 02/09/18 02:00 Pulse Ox 95 02/09/18 02:00 - Orders/Labs/Meds Orders: Medication Orders Acetaminophen (Tylenol) 650 mg PO Q6H [facility] Amlodipine Besylate (Norvasc) 5 mg PO QPM [facility] Apixaban (Eliquis) 2.5 mg PO BID [facility] Bupropion HCl (Wellbutrin Xl) 75 mg PO QAM [facility] Calcium Citrate (Calcium Citrate + D) 1 tab PO DAILY [facility] Cholecalciferol (Vitamin D3) 1,000 units PO DAILY [facility] Furosemide (Lasix) 20 mg PO DAILY [facility] Gabapentin (Neurontin) 300 mg PO BEDTIME [facility] Lactated Ringer's (Ringers, Lactated) 1,000 mls @ 500 mls/hr IV ASDIRECTED [facility] Last Admin: 02/09/18 00:27 Dose: 500 mls/hr Infusion: 02/09/18 00:13 Dose: 500 mls/hr Admin: 02/08/18 22:13 Dose: 500 mls/hr Metoprolol Succinate (Toprol Xl) 12.5 mg PO BEDTIME [facility] Multivitamins/Minerals (Thera M Plus) 1 tab PO DAILY [facility] Non-Formulary Medication (Etodolac [Lodine]) 400 mg PO BID [facility] Non-Formulary Medication (Tamoxifen [Nolvadex]) 20 mg PO BEDTIME [facility] Ondansetron HCl (Zofran Odt) 4 mg PO Q4HR PRN PRN Reason: Nausea Orphenadrine Citrate (Norflex) 100 mg PO BID [facility] Last Admin: 02/08/18 23:38 Dose: 100 mg Oxycodone HCl (Oxycodone) 5 mg PO Q4H PRN PRN Reason: Pain (moderate 4-6) Last Admin: 02/09/18 01:10 Dose: 5 mg Polyethylene Glycol (Miralax) 0 gm PO BID [facility] Senna/Docusate Sodium (Senna Plus) 1 tab PO BID [facility] Sodium Chloride (Saline Flush) 10 ml FLUSH ASDIRECTED PRN PRN Reason: Keep Vein Open Last Admin: 02/08/18 23:35 Dose: 10 ml Meds: Medications Generic Name Dose Route Start Last Admin Trade Name Freq PRN Reason Stop Dose Admin Acetaminophen 650 mg 02/09/18 01:45 Tylenol PO Q6H [facility] Amlodipine Besylate 5 mg 02/09/18 20:00 Norvasc PO QPM [facility] Apixaban 2.5 mg 02/09/18 08:00 Eliquis PO BID [facility] Bupropion HCl 75 mg 02/09/18 08:00 Wellbutrin Xl PO QAM [facility] Calcium Citrate 1 tab 02/09/18 08:00 Calcium Citrate + D PO DAILY [facility] Cholecalciferol 1,000 units 02/09/18 08:00 Vitamin D3 PO DAILY [facility] Furosemide 20 mg 02/09/18 08:00 Lasix PO DAILY [facility] Gabapentin 300 mg 02/09/18 20:00 Neurontin PO BEDTIME [facility] Lactated Ringer's 1,000 mls @ 500 mls/hr 02/08/18 21:30 02/09/18 00:27 Ringers, Lactated IV 500 mls/hr ASDIRECTED [facility] Administration Metoprolol Succinate 12.5 mg 02/09/18 20:00 Toprol Xl PO BEDTIME [facility] Multivitamins/Minerals 1 tab 02/09/18 08:00 Thera M Plus PO DAILY [facility] Non-Formulary Medication 400 mg 02/09/18 01:45 Etodolac [Lodine] PO BID [facility] Non-Formulary Medication 20 mg 02/09/18 20:00 Tamoxifen [Nolvadex] PO BEDTIME [facility] Ondansetron HCl 4 mg 02/09/18 01:42 Zofran Odt PO Q4HR PRN Nausea Orphenadrine Citrate 100 mg 02/08/18 23:30 02/08/18 23:38 Norflex PO 100 mg BID [facility] Administration Oxycodone HCl 5 mg 02/08/18 21:16 02/09/18 01:10 Oxycodone PO 5 mg Q4H PRN Administration Pain (moderate 4-6) Polyethylene Glycol 0 gm 02/09/18 08:00 Miralax PO BID [facility] Senna/Docusate Sodium 1 tab 02/09/18 08:00 Senna Plus PO BID [facility] Sodium Chloride 10 ml 02/08/18 21:14 02/08/18 23:35 Saline Flush FLUSH 10 ml ASDIRECTED PRN Administration Keep Vein Open Discontinued Medications Generic Name Dose Route Start Last Admin Trade Name Freq PRN Reason Stop Dose Admin Morphine Sulfate 4 mg 02/08/18 23:23 02/08/18 23:38 Morphine IVPUSH 02/08/18 23:24 4 mg ONETIME ONE Administration Ondansetron HCl 4 mg 02/08/18 21:17 02/08/18 22:08 Zofran IVPUSH 02/08/18 21:18 4 mg ONETIME ONE Administration Departure - Departure Time of Disposition: 20:58 Disposition: Home, Self-Care 01 Clinical Impression: Post-op pain, Dehydration, Non compliance with medical treatment - Discharge Information
[2018-02-09] MEDS ORDERED: Metoclopramide 10 MG/2 ML SDV IVPUSH ONE (04:07)
[2018-02-09] MEDS ORDERED: Ketorolac 30 MG/ML SDV IVPUSH ONE (04:08)
[2018-02-09] MEDS ORDERED: Sodium Chloride 0.9% 1,000 ML IV ONE (04:09)
[2018-02-09] MEDS ORDERED: diphenhydrAMINE 50 MG/ML SDV IVPUSH ONE (04:10)
[2018-02-09 07:30] LABS: CHLORIDE,CL 108 mmol/L (98-107); SODIUM,NA 141 mmol/L (136-145)
[2018-02-09] MEDS ORDERED: Furosemide 20 MG Tab PO SCH (08:00)
[2018-02-09] MEDS ORDERED: buPROPion 150 MG Tab.ER PO SCH (08:00)
[2018-02-09] MEDS ORDERED: Apixaban 2.5 MG Tab PO SCH (08:00)
[2018-02-09] MEDS: Enoxaparin 40 MG/0.4 ML Syringe SUBCUT SCH (08:38)
[2018-02-09] MEDS: Orphenadrine 100 MG Tab.ER PO SCH ×2 (08:38→19:50)
[2018-02-09] MEDS: Polyethylene Glycol 3350 Powder 17 GM Packet PO SCH ×2 (08:38→19:57)
[2018-02-09] MEDS: Calcium Citrate/Vitamin D3 315 MG-250 Unit Tab PO SCH (08:38)
[2018-02-09] MEDS: Multivitamins with Iron/Calcium/Folic Acid/Minerals Tab PO SCH (08:38)
[2018-02-09] MEDS: Cholecalciferol (Vitamin D3) 1,000 Unit Tab PO SCH (08:38)
[2018-02-09] MEDS ORDERED: Sodium Chloride 0.9% 1,000 ML IV SCH (08:45)
[2018-02-09] MEDS ORDERED: ETODOLAC 400 MG PO ONE (10:00)
--- NOTE | 2018-02-09 10:47 | PCM.PN ---
- General Info Date of Service: 02/09/18 Admission Dx/Problem (Free Text): Pt. presents to ER at [facility] yesterday after being seen at [facility] (ER) earlier the same day. The patient had presented to the emergency room at [facility] yesterday complaining of a severe frontal headache that she was rating 10 out of 10. The patient did undergo a CTA of the head which was normal. The patient was given 75 mg of IV Benadryl and also 350 g of IV fentanyl in the ER for her headache. The patient was then discharged home. The patient underwent bilateral total knee replacement on January 30, [address] Kevin Cat. The patient had no acute complications postop and was discharged home on February 03, 2018 into the care of her sister in [place]. The patient was supposed to be seen by [facility] for in-home physical and occupational therapy, however the patient states that they never showed up. Therefore the patient did not have any physical therapy for the past 10 days. The patient is also supposed to be taking Eliquis, but for some reason she has not been taking this medication for DVT prophylaxis status post bilateral knee replacement. The patient states that she developed a headache a couple of days ago and that is why she presented to the emergency room at [place] yesterday. The patient's family felt that the patient should have been admitted, however medical necessity was not found at that time. Therefore, the patient presented here at [facility] in hopes of being admitted. The admitting provider at [facility] did admit the patient observation yesterday for dehydration, uncontrolled pain, nausea and vomiting. The patient states today that her pain is minimally controlled. The patient states most of her pain is in her bilateral knees as well as her back. In interviewing the patient further, the patient admits that she has not been eating or drinking very well at home. The patient states that she has only been taking her narcotic pain medication. The patient is unsure when she had her last bowel movement. The patient's urine has been very dark and concentrated. The patient has not had any focal neurological deficits. The patient denies any chest pain. The patient denies any shortness of breath. Functional Status: Reports: Tolerating Diet, Urinating. Denies: Pain Controlled Pain Score: 10 (bilateral knees, neck, back) - Review of Systems General: Reports: Weakness. Denies: Fever, Fatigue, Chills Pulmonary: Denies: Shortness of Breath, Cough Cardiovascular: Denies: Chest Pain, Palpitations Gastrointestinal: Reports: Nausea. Denies: Abdominal Pain, Diarrhea, Vomiting Musculoskeletal: Reports: Neck Pain, Back Pain, Joint Pain Skin: Reports: No Symptoms Neurological: Reports: Headache. Denies: Dizziness, Numbness, Paresthesia, Tingling - Patient Data Vitals - Most Recent: Last Vital Signs Temp 36.8 C 02/09/18 10:00 Pulse 70 02/09/18 10:00 Resp 20 02/09/18 10:00 BP 138/64 02/09/18 10:00 Pulse Ox 98 02/09/18 10:00 Weight - Most Recent: 127.006 kg I&O - Last 24 Hours: Intake & Output 02/08/18 02/09/18 02/09/18 22:59 06:59 14:59 Intake Total 1766 Output Total 650 Balance 1116 Lab Results Last 24 Hours: Laboratory Results - last 24 hr 02/09/18 02/09/18 02/09/18 Range/Units 07:00 07:00 07:00 WBC 5.6 (4.0-10.0) x10^3/uL RBC 2.74 L (4.00-5.50) x10^6/uL Hgb 8.3 L D (12.0-16.0) g/dL Hct 26.7 L (33.0-47.0) % MCV 97.4 H (78.0-93.0) fL MCH 30.3 (26.0-32.0) pg MCHC 31.1 L (32.0-36.0) g/dL RDW Coeff of [place] 13.8 (10.0-15.0) % Plt Count 100 L D (130-400) x10^3/uL Neut % (Auto) 75.3 (50.0-80.0) % Lymph % (Auto) 13.6 L (25.0-50.0) % [place] % (Auto) 6.6 (2.0-11.0) % Eos % (Auto) 3.8 (0.0-4.0) % Baso % (Auto) 0.7 (0.2-1.2) % PT 10.8 (9.6-11.4) SEC INR 1.0 L (2.0-3.5) Sodium 141 (136-145) mmol/L Potassium 3.7 (3.5-5.1) mmol/L Chloride 108 H (98-107) mmol/L Carbon Dioxide 23 (21-32) mmol/L Anion Gap 13.7 (10-20) mmol/L BUN 11 (7-18) mg/dL Creatinine 0.7 (0.55-1.02) mg/dL Est Cr Clr Drug Dosing 81.18 mL/min Estimated GFR (MDRD) > 60 Glucose 108 H (74-106) mg/dL Calcium 7.9 L (8.5-10.1) mg/dL Corrected Calcium 9.18 (8.5-10.1) mg/dL Total Bilirubin 0.9 (0.2-1.0) mg/dL AST 34 (15-37) U/L ALT 27 (14-59) U/L Alkaline Phosphatase 72 (46-116) U/L C-Reactive Protein 3.2 H (<=0.9) mg/dL Total Protein 5.8 L (6.4-8.2) g/dL Albumin 2.4 L (3.4-5.0) g/dL Globulin 3.4 Albumin/Globulin Ratio 0.71 Urine Color (YELLOW) Urine Appearance (CLEAR) Urine pH (5.0-8.0) Ur Specific [place] Urine Protein (NEGATIVE) mg/dL Urine Glucose (UA) (NEGATIVE) mg/dL Urine Ketones (NEGATIVE) mg/dL Urine Occult Blood (NEGATIVE) Urine Nitrite (NEGATIVE) Urine Bilirubin (NEGATIVE) Urine Urobilinogen (0.2) EU/dL Ur Leukocyte Esterase (NEGATIVE) Urine RBC (NOT SEEN) /HPF Urine WBC (NOT SEEN) /HPF Ur Squamous Epith Cells (NEGATIVE) /HPF Amorphous Sediment Urine Bacteria (NEGATIVE) /HPF Urine Mucus (NEGATIVE) /LPF 02/09/18 Range/Units 08:45 WBC (4.0-10.0) x10^3/uL RBC (4.00-5.50) x10^6/uL Hgb (12.0-16.0) g/dL Hct (33.0-47.0) % MCV (78.0-93.0) fL MCH (26.0-32.0) pg MCHC (32.0-36.0) g/dL RDW Coeff of [place] (10.0-15.0) % Plt Count (130-400) x10^3/uL Neut % (Auto) (50.0-80.0) % Lymph % (Auto) (25.0-50.0) % [place] % (Auto) (2.0-11.0) % Eos % (Auto) (0.0-4.0) % Baso % (Auto) (0.2-1.2) % PT (9.6-11.4) SEC INR (2.0-3.5) Sodium (136-145) mmol/L Potassium (3.5-5.1) mmol/L Chloride (98-107) mmol/L Carbon Dioxide (21-32) mmol/L Anion Gap (10-20) mmol/L BUN (7-18) mg/dL Creatinine (0.55-1.02) mg/dL Est Cr Clr Drug Dosing mL/min Estimated GFR (MDRD) Glucose (74-106) mg/dL Calcium (8.5-10.1) mg/dL Corrected Calcium (8.5-10.1) mg/dL Total Bilirubin (0.2-1.0) mg/dL AST (15-37) U/L ALT (14-59) U/L Alkaline Phosphatase (46-116) U/L C-Reactive Protein (<=0.9) mg/dL Total Protein (6.4-8.2) g/dL Albumin (3.4-5.0) g/dL Globulin Albumin/Globulin Ratio Urine Color Dark yellow H (YELLOW) Urine Appearance Cloudy H (CLEAR) Urine pH 5.5 (5.0-8.0) Ur Specific [place] 1.015 Urine Protein Negative (NEGATIVE) mg/dL Urine Glucose (UA) Negative (NEGATIVE) mg/dL Urine Ketones 15 H (NEGATIVE) mg/dL Urine Occult Blood Negative (NEGATIVE) Urine Nitrite Negative (NEGATIVE) Urine Bilirubin Moderate H (NEGATIVE) Urine Urobilinogen 4.0 H (0.2) EU/dL Ur Leukocyte Esterase Negative (NEGATIVE) Urine RBC 0-5 (NOT SEEN) /HPF Urine WBC 0-5 (NOT SEEN) /HPF Ur Squamous Epith Cells Moderate H (NEGATIVE) /HPF Amorphous Sediment Many Urine Bacteria Not seen (NEGATIVE) /HPF Urine Mucus Rare H (NEGATIVE) /LPF Med Orders - Current: Current Medications Acetaminophen (Tylenol) 650 mg PO Q6H [facility] Last Admin: 02/09/18 10:39 Dose: 650 mg Amlodipine Besylate (Norvasc) 5 mg PO QPM [facility] Bupropion HCl (Wellbutrin Xl) 75 mg PO QAM [facility] Calcium Citrate (Calcium Citrate + D) 1 tab PO DAILY [facility] Last Admin: 02/09/18 08:38 Dose: 1 tab Cholecalciferol (Vitamin D3) 1,000 units PO DAILY [facility] Last Admin: 02/09/18 08:38 Dose: 1,000 units Enoxaparin Sodium (Lovenox) 40 mg SUBCUT DAILY [facility] Last Admin: 02/09/18 08:38 Dose: 40 mg Furosemide (Lasix) 20 mg PO DAILY [facility] Gabapentin (Neurontin) 300 mg PO BEDTIME [facility] Sodium Chloride (Normal Saline) 1,000 mls @ 250 mls/hr IV ASDIRECTED [facility] Metoprolol Succinate (Toprol Xl) 12.5 mg PO BEDTIME [facility] Multivitamins/Minerals (Thera M Plus) 1 tab PO DAILY [facility] Last Admin: 02/09/18 08:38 Dose: 1 tab Etodolac [Lodine] (400 Mg Own Med) 0 mg PO BID [facility] Tamoxifen [Nolvadex] (20 Mg Own Med) 0 mg PO BEDTIME [facility] Ondansetron HCl (Zofran Odt) 4 mg PO Q4HR PRN PRN Reason: Nausea Last Admin: 02/09/18 03:55 Dose: 4 mg Orphenadrine Citrate (Norflex) 100 mg PO BID [facility] Last Admin: 02/09/18 08:38 Dose: 100 mg Oxycodone HCl (Oxycodone) 5 mg PO Q4H PRN PRN Reason: Pain (moderate 4-6) Last Admin: 02/09/18 01:10 Dose: 5 mg Polyethylene Glycol (Miralax) 0 gm PO BID [facility] Last Admin: 02/09/18 08:38 Dose: 17 gm Senna/Docusate Sodium (Senna Plus) 1 tab PO BID [facility] Last Admin: 02/09/18 08:38 Dose: 1 tab Sodium Chloride (Saline Flush) 10 ml FLUSH ASDIRECTED PRN PRN Reason: Keep Vein Open Last Admin: 02/08/18 23:35 Dose: 10 ml Discontinued Medications Apixaban (Eliquis) 2.5 mg PO BID [facility] Diphenhydramine HCl (Benadryl) 50 mg IVPUSH ONETIME ONE Stop: 02/09/18 04:11 Last Admin: 02/09/18 04:28 Dose: 50 mg Lactated Ringer's (Ringers, Lactated) 1,000 mls @ 500 mls/hr IV ASDIRECTED [facility]OHAN Last Admin: 02/09/18 00:27 Dose: 500 mls/hr Sodium Chloride (Normal Saline) 1,000 mls @ 250 mls/hr IV ONETIME ONE Stop: 02/09/18 08:08 Last Admin: 02/09/18 04:20 Dose: 250 mls/hr Ketorolac Tromethamine (Toradol) 30 mg IVPUSH ONETIME ONE Stop: 02/09/18 04:09 Last Admin: 02/09/18 04:24 Dose: 30 mg Metoclopramide HCl (Reglan) 10 mg IVPUSH ONETIME ONE Stop: 02/09/18 04:08 Last Admin: 02/09/18 04:31 Dose: 10 mg Morphine Sulfate (Morphine) 4 mg IVPUSH ONETIME ONE Stop: 02/08/18 23:24 Last Admin: 02/08/18 23:38 Dose: 4 mg Etodolac [Lodine] (400 Mg Own Med) 0 mg PO ONETIME ONE Stop: 02/09/18 10:01 Last Admin: 02/09/18 10:40 Dose: 400 mg Ondansetron HCl (Zofran) 4 mg IVPUSH ONETIME ONE Stop: 02/08/18 21:18 Last Admin: 02/08/18 22:08 Dose: 4 mg - Exam Quality Assessment: DVT Prophylaxis (on Lovenox). No: Skin Breakdown General: Alert, Oriented, Cooperative, No Acute Distress HEENT: Other (Mucous membranes dry, pale pink.) Lungs: Clear to Auscultation, Normal Respiratory Effort, Decreased Breath Sounds Cardiovascular: Regular Rate, Regular Rhythm, No Murmurs GI/Abdominal Exam: Soft, Non-Tender, Abnormal Bowel Sounds (Hypoactive) Back Exam: Normal Inspection Extremities: Normal Inspection Peripheral Pulses: 2+: Radial (L), Radial (R) Skin: Warm, Dry, Intact Wound/Incisions: Healing Well Neurological: No New Focal Deficit - Problem List & Annotations (1) Dehydration SNOMED Code(s): 56032850 Code(s): E86.0 - DEHYDRATION Status: Acute Priority: Medium Current Visit: Yes (2) Post-op pain SNOMED Code(s): 710398310 Code(s): G89.18 - OTHER ACUTE POSTPROCEDURAL PAIN Status: Acute Priority : Medium Current Visit: Yes (3) Non compliance with medical treatment SNOMED Code(s): 3557421 Code(s): Z91.19 - PATIENT'S NONCOMPLIANCE W OTH MEDICAL TREATMENT AND REGIMEN Status: Acute Priority: Medium Current Visit: Yes (4) Coronary artery disease SNOMED Code(s): 03602055 Code(s): I25.10 - ATHSCL HEART DISEASE OF [place] CORONARY ARTERY W/O ANG PCTRS Status: Chronic Priority: Low Current Visit: No Qualifiers: Coronary Disease-Associated Artery/Lesion type: [place] artery [place] vs. transplanted heart: [place] heart Associated angina: without angina Qualified Code(s): I25.10 - Atherosclerotic heart disease of [place] coronary artery without angina pectoris (5) History of breast cancer SNOMED Code(s): 678049308 Code(s): Z85.3 - PERSONAL HISTORY OF MALIGNANT NEOPLASM OF BREAST Status: Chronic Current Visit: No (6) Hypertension SNOMED Code(s): 42131905 Code(s): I10 - ESSENTIAL (PRIMARY) HYPERTENSION Status: Chronic Current Visit: No Qualifiers: Hypertension type: essential hypertension Qualified Code(s): I10 - Essential (primary) hypertension (7) Chronic kidney disease SNOMED Code(s): 268926000 Code(s): N18.9 - CHRONIC KIDNEY DISEASE, UNSPECIFIED Status: Chronic Priority: Low Current Visit: No Qualifiers: Chronic kidney disease stage: stage 3 (moderate) Qualified Code(s): N18.3 - Chronic kidney disease, stage 3 (moderate) - Problem List Review Problem List Initiated/Reviewed/Updated: Yes - My Orders Last 24 Hours: My Active Orders 02/09/18 08:45 Sodium Chloride 0.9% [Normal Saline] 1,000 ml IV ASDIRECTED - Assessment Assessment:: Dehydration Post-Op Pain Weakness Deconditioning Nausea CAD Hx of Left Breast CA HTN CKD, Stage III - Plan Plan:: Hospital day #2 for a 52-year-old female patient with a past medical history of coronary artery disease, chronic kidney disease, hypertension, history of left breast cancer admitted to the observation unit yesterday for a diagnosis of dehydration, postop pain, weakness, deconditioning, and nausea. We will continue the patient on IV fluids for now as her urine still appears concentrated. The patient's BUN/creatinine are stable. We will continue the patient's current pain medication treatment without any changes. We will ask physical and occupational therapy to see the patient today. No other changes to any home medications. The patient does have significant weakness and deconditioning, therefore it would be medically necessary to transition the patient to swing bed for intensive physical and occupational therapy. Also, the patient has not had any physical therapy since her surgery 10 days ago. Our plan is for her to return home and be independent. The patient is a full code. The patient does wish to be transferred to a high-level care should the need arise. We will continue DVT prophylaxis with Lovenox. I will recheck blood work tomorrow morning to check hydration status. The patient does have a history of chronic anemia as well. The patient's hemoglobin on discharge from her surgery was 8.0. The patient's hemoglobin today was 8.3. We will continue to monitor this. It is possible part of the low hemoglobin is dilutional. I will speak with the patient's primary care provider, Dr. Justin regarding the patient's transition to swing bed today.
--- NOTE | 2018-02-09 17:12 | PCM.SN ---
- Free Text/Narrative Note: Patient's status reassessed this afternoon with physical and occupational therapies. The patient does not require and swing bed PT/OT as she did very well with therapy treatment this afternoon. Anticipate a discharge home tomorrow as she continues to improve.
[2018-02-09] MEDS: ETODOLAC 400 MG PO SCH (19:54)
[2018-02-09] MEDS ORDERED: amLODIPine 5 MG Tab PO SCH (20:00)
[2018-02-09] MEDS ORDERED: Gabapentin 300 MG Cap PO SCH (20:00)
[2018-02-09] MEDS ORDERED: Metoprolol Succinate 25 MG Tab.ER PO SCH (20:00)
[2018-02-09] MEDS ORDERED: TAMOXIFEN 20 MG PO SCH (20:00)
[2018-02-10] MEDS: oxyCODONE 5 MG Tab PO PRN ×4 (02:14→14:40)
[2018-02-10] MEDS: Acetaminophen 325 MG Tab PO SCH ×3 (04:12→16:30)
[2018-02-10] MEDS: Orphenadrine 100 MG Tab.ER PO SCH (07:53)
[2018-02-10] MEDS: Cholecalciferol (Vitamin D3) 1,000 Unit Tab PO SCH (07:53)
[2018-02-10] MEDS: Enoxaparin 40 MG/0.4 ML Syringe SUBCUT SCH (07:53)
[2018-02-10] MEDS: Multivitamins with Iron/Calcium/Folic Acid/Minerals Tab PO SCH (07:53)
[2018-02-10] MEDS: Calcium Citrate/Vitamin D3 315 MG-250 Unit Tab PO SCH (07:53)
[2018-02-10] MEDS: ETODOLAC 400 MG PO SCH (07:54)
[2018-02-10] MEDS: Polyethylene Glycol 3350 Powder 17 GM Packet PO SCH (07:54)
--- NOTE | 2018-02-10 08:32 | PCM.DCSUM1 ---
Discharge Summary - Hospital Course Free Text/Narrative:: Pt. presents to ER at [facility] 2 days ago after being seen at [facility] (ER) the same day. The patient had presented to the emergency room at [facility] 2 days ago with complaint of a severe frontal headache that she was rating 10 out of 10. The patient did undergo a CTA of the head which was normal. The patient was given 75 mg of IV Benadryl and also 350 g of IV fentanyl in the ER for her headache. The patient was then discharged home. The patient states that she developed a headache a few days prior to presenting to the emergency room at [place] yesterday. The patient's family felt that the patient should have been admitted, however medical necessity was not found at that time. Therefore, the patient presented here at [facility] in hopes of being admitted. The patient underwent bilateral total knee replacement on January 30, [address] Kevin Cat. The patient had no acute complications postop and was discharged home on February 03, 2018 into the care of her sister in [place]. The patient was supposed to be seen by [facility] for in-home physical and occupational therapy, however the patient stated they never showed up. Therefore the patient did not have any physical therapy for the past 2 weeks. The patient is also supposed to be taking Eliquis, but for some reason she has not been taking this medication for DVT prophylaxis status post bilateral knee replacement. The admitting provider at [facility] did admit the patient observation 2 days ago for dehydration, uncontrolled pain, nausea and vomiting. Pt is currently on oral intake. Vicenta is up and eating a full meal this am with charting indicating she has been consuming at least 75% of her meals since admit. She is drinking an adequate amount of water and has been up and about. Her mobility is a little slower paced. But that could be in relation to not completed physical therapy the past 2 weeks since her operation. Pt denies and nausea or vomiting and the pain is controlled. . - Discharge Data Discharge Date: 02/10/18 Discharge Disposition: Home, Self-Care 01 Condition: Good - Discharge Diagnosis/Problem(s) (1) Dehydration SNOMED Code(s): 66137844 ICD Code: E86.0 - DEHYDRATION Status: Acute Priority: Medium Current Visit: Yes - Patient Summary/Data Consults: Consultations 02/08/18 23:27 Consult to Physical Therapy [PT Evaluation and Treatment] [CONS] Routine OT Evaluation and Treatment [CONS] Routine 02/09/18 02:17 Consult to Manager Business Management [CONS] Routine - Patient Instructions Diet: Usual Diet as Tolerated, Regular Diet as Tolerated Activity: Apply Ice, As Tolerated, Elevate Extremity, No Strenuous Activities Driving: Do Not Drive Showering/Bathing: May Shower Wound/Incision Care: Keep Operative Site/Wound Site Clean and Dry Notify Provider of: Fever, Increased Pain, Swelling and Redness, Drainage, Nausea and/or Vomiting Other/Special Instructions: 1. Rest. 2. Ensure you are completing your exercises the Orthopedic surgeon gave you at discharge. 3. Ensure you keep your appointment with physical therapy next week for the best outcome/recovery. 4. Increase your water intake. 5. Only take narcotics with severe pain use OTC managment with mild-moderated. 6. Take OTC probiotic to help increase GI motility while on narcotic pain medications. 7. Keep active and moving but also also for adequate rest and icing to the knees. 8. Take your Eliquis as prescribed to help reduce the risk of DVT. 9. Keep your follow up appointments with orthopedic to ensure proper healing is on tract. - Discharge Plan Home Medications: Home Meds amLODIPine [Norvasc] 5 mg PO QPM 03/07/14 [History] Calcium Citrate/Vitamin D3 [Calcium Citrate - Vit D Tablet] 1 tab PO DAILY 12/15 [History] Cholecalciferol (Vitamin D3) [Vitamin D3] 1,000 units PO DAILY 12/15/17 [History ] Etodolac [Lodine] 400 mg PO BID 12/15/17 [History] Gabapentin [Neurontin] 300 mg PO BEDTIME 12/15/17 [History] Tamoxifen [Nolvadex] 20 mg PO BEDTIME 12/15/17 [History] Acetaminophen 650 mg PO Q6H 02/09/18 [History] Apixaban [Eliquis] 2.5 mg PO BID 02/09/18 [History] Furosemide 20 mg PO DAILY 02/09/18 [History] Metoprolol Succinate [Toprol XL] 12.5 mg PO BEDTIME 02/09/18 [History] Multivitamin [Daily Regla] 1 tab PO DAILY 02/09/18 [History] Ondansetron [Zofran ODT] 4 mg PO Q4HR PRN 02/09/18 [History] Polyethylene Glycol 3350 [MiraLAX] 3 tsp PO BID 02/09/18 [History] Sennosides/Docusate Sodium [Senna-Docusate Sodium Tablet] 1 tab PO BID 02/09/18 [History] hydrOXYzine Pamoate [Vistaril] 25 mg PO Q4H PRN 02/09/18 [History] oxyCODONE 1 - 2 tab PO Q4HR PRN 02/09/18 [History] Patient Handouts: Dehydration, Adult, [id number], Pain Medicine Instructions , [id number] Forms: ED Department Discharge Referrals: Amna Justin MD [Primary Care Provider] - - Discharge Summary/Plan Comment DC Time >30 min.: No Discharge Summary/Plan Comment: 1. VSS remained within normal limits since admit. 2. Pt is up and ambulating with assistive devices per self. 3. PT/OT consult concluded pt was safe to discharge home and return for outpt PT /OT 3 times a week. 4. Education given to the pt regarding diet, exercise, mobility, follow up, warning signs, narcotic use, and DVT prophylaxis 5. Pt will be discharged home with PT/OT set up and pt is to follow up with PCP within a week along with keeping her post op appointments as already scheduled. - General Info Functional Status: Reports: Pain Controlled, Tolerating Diet, Ambulating - Review of Systems General: Reports: No Symptoms HEENT: Reports: No Symptoms Pulmonary: Reports: No Symptoms Cardiovascular: Reports: No Symptoms Gastrointestinal: Reports: No Symptoms Genitourinary: Reports: No Symptoms Musculoskeletal: Reports: Other (bilateral knee pian post op-replacement ) Skin: Reports: No Symptoms Neurological: Reports: No Symptoms - Patient Data Vitals - Most Recent: Last Vital Signs Temp 36.7 C 02/10/18 05:23 Pulse 86 02/10/18 05:23 Resp 18 02/10/18 05:23 BP 140/69 02/10/18 05:23 Pulse Ox 99 02/10/18 05:23 Weight - Most Recent: 127.006 kg I&O - Last 24 hours: Intake & Output 02/09/18 02/10/18 02/10/18 22:59 06:59 14:59 Intake Total 2400 720 Output Total 600 1800 Balance 1800 -1080 Lab Results - Last 24 hrs: Laboratory Results - last 24 hr 02/09/18 02/10/18 Range/Units 08:45 07:21 WBC 4.4 (4.0-10.0) x10^3/uL RBC 2.64 L (4.00-5.50) x10^6/uL Hgb 8.1 L (12.0-16.0) g/dL Hct 25.8 L (33.0-47.0) % MCV 97.7 H (78.0-93.0) fL MCH 30.7 (26.0-32.0) pg MCHC 31.4 L (32.0-36.0) g/dL RDW Coeff of Skyler 13.7 (10.0-15.0) % Plt Count 84 L (130-400) x10^3/uL Urine Color Dark yellow H (YELLOW) Urine Appearance Cloudy H (CLEAR) Urine pH 5.5 (5.0-8.0) Ur Specific [place] 1.015 Urine Protein Negative (NEGATIVE) mg/dL Urine Glucose (UA) Negative (NEGATIVE) mg/dL Urine Ketones 15 H (NEGATIVE) mg/dL Urine Occult Blood Negative (NEGATIVE) Urine Nitrite Negative (NEGATIVE) Urine Bilirubin Moderate H (NEGATIVE) Urine Urobilinogen 4.0 H (0.2) EU/dL Ur Leukocyte Esterase Negative (NEGATIVE) Urine RBC 0-5 (NOT SEEN) /HPF Urine WBC 0-5 (NOT SEEN) /HPF Ur Squamous Epith Cells Moderate H (NEGATIVE) /HPF Amorphous Sediment Many Urine Bacteria Not seen (NEGATIVE) /HPF Urine Mucus Rare H (NEGATIVE) /LPF Med Orders - Current: Current Medications Acetaminophen (Tylenol) 650 mg PO Q6H [facility] Last Admin: 02/10/18 04:12 Dose: 650 mg Amlodipine Besylate (Norvasc) 5 mg PO QPM [facility] Last Admin: 02/09/18 19:50 Dose: 5 mg Bupropion HCl (Wellbutrin Xl) 75 mg PO QAM [facility] Last Admin: 02/09/18 15:36 Dose: Not Given Calcium Citrate (Calcium Citrate + D) 1 tab PO DAILY [facility] Last Admin: 02/10/18 07:53 Dose: 1 tab Cholecalciferol (Vitamin D3) 1,000 units PO DAILY [facility] Last Admin: 02/10/18 07:53 Dose: 1,000 units Enoxaparin Sodium (Lovenox) 40 mg SUBCUT DAILY [facility] Last Admin: 02/10/18 07:53 Dose: 40 mg Furosemide (Lasix) 20 mg PO DAILY [facility] Gabapentin (Neurontin) 300 mg PO BEDTIME [facility] Last Admin: 02/09/18 19:50 Dose: 300 mg Metoprolol Succinate (Toprol Xl) 12.5 mg PO BEDTIME [facility] Last Admin: 02/09/18 19:50 Dose: 12.5 mg Multivitamins/Minerals (Thera M Plus) 1 tab PO DAILY [facility] Last Admin: 02/10/18 07:53 Dose: 1 tab Etodolac [Lodine] (400 Mg Own Med) 0 mg PO BID [facility] Last Admin: 02/10/18 07:54 Dose: 400 mg Tamoxifen [Nolvadex] (20 Mg Own Med) 0 mg PO BEDTIME [facility] Last Admin: 02/09/18 19:52 Dose: 20 mg Ondansetron HCl (Zofran Odt) 4 mg PO Q4HR PRN PRN Reason: Nausea Last Admin: 02/09/18 03:55 Dose: 4 mg Orphenadrine Citrate (Norflex) 100 mg PO BID [facility] Last Admin: 02/10/18 07:53 Dose: 100 mg Oxycodone HCl (Oxycodone) 5 mg PO Q4H PRN PRN Reason: Pain (moderate 4-6) Last Admin: 02/10/18 06:02 Dose: 5 mg Polyethylene Glycol (Miralax) 0 gm PO BID [facility] Last Admin: 02/10/18 07:54 Dose: Not Given Senna/Docusate Sodium (Senna Plus) 1 tab PO BID [facility] Last Admin: 02/10/18 07:53 Dose: 1 tab Sodium Chloride (Saline Flush) 10 ml FLUSH ASDIRECTED PRN PRN Reason: Keep Vein Open Last Admin: 02/08/18 23:35 Dose: 10 ml Discontinued Medications Apixaban (Eliquis) 2.5 mg PO BID [facility] Diphenhydramine HCl (Benadryl) 50 mg IVPUSH ONETIME ONE Stop: 02/09/18 04:11 Last Admin: 02/09/18 04:28 Dose: 50 mg Lactated Ringer's (Ringers, Lactated) 1,000 mls @ 500 mls/hr IV ASDIRECTED [facility] Last Admin: 02/09/18 00:27 Dose: 500 mls/hr Sodium Chloride (Normal Saline) 1,000 mls @ 250 mls/hr IV ONETIME ONE Stop: 02/09/18 08:08 Last Admin: 02/09/18 04:20 Dose: 250 mls/hr Sodium Chloride (Normal Saline) 1,000 mls @ 250 mls/hr IV ASDIRECTED [facility] Last Admin: 02/09/18 08:45 Dose: 250 mls/hr Ketorolac Tromethamine (Toradol) 30 mg IVPUSH ONETIME ONE Stop: 02/09/18 04:09 Last Admin: 02/09/18 04:24 Dose: 30 mg Metoclopramide HCl (Reglan) 10 mg IVPUSH ONETIME ONE Stop: 02/09/18 04:08 Last Admin: 02/09/18 04:31 Dose: 10 mg Morphine Sulfate (Morphine) 4 mg IVPUSH ONETIME ONE Stop: 02/08/18 23:24 Last Admin: 02/08/18 23:38 Dose: 4 mg Etodolac [Lodine] (400 Mg Own Med) 0 mg PO ONETIME ONE Stop: 02/09/18 10:01 Last Admin: 02/09/18 10:40 Dose: 400 mg Ondansetron HCl (Zofran) 4 mg IVPUSH ONETIME ONE Stop: 02/08/18 21:18 Last Admin: 02/08/18 22:08 Dose: 4 mg - Exam General: Reports: Alert, Oriented HEENT: Reports: Pupils Equal, Pupils Reactive, EOMI, Mucous Membr. Moist/[place] Neck: Reports: Supple Lungs: Reports: Clear to Auscultation, Normal Respiratory Effort Cardiovascular: Reports: Regular Rate, Regular Rhythm GI/Abdominal Exam: Normal Bowel Sounds, Soft, No Distention, No Abnormal Bruit Back Exam: Reports: Normal Inspection Extremities: Normal Range of Motion, No Pedal Edema, Normal Capillary Refill, Other (bilateral eehymosis noted. no swelling, redness, or warmth noted) Wound/Incisions: Reports: Healing Well, Dressing Dry and Intact, No Drainage, Drainage. Denies: Erythema, Decubitis Neurological: Reports: No New Focal Deficit Psy/Mental Status: Reports: Alert, Anxious *Q Meaningful Use (DIS) - VTE *Q VTE Mechanical Contraindications *Q: At Risk for Falls
[2018-02-10 13:45] VITALS: BP 123/65
== END 2018-02-10 15:30 | disposition home or self-care (01) | DRG 422 ==
LOC: VM.ED 20:35 → VM.MS 20:56
PROVIDERS: ADMIT Physician Assistant; ATTEND Physician Assistant
DX: E86.0 Dehydration (principal); N18.3 Chronic kidney disease, stage 3 (moderate); G89.18 Other acute postprocedural pain; G89.29 Other chronic pain; M54.5 Low back pain; H54.7 Unspecified visual loss; I25.10 Atherosclerotic heart disease of native coronary artery without angina pectoris; E78.00 Pure hypercholesterolemia, unspecified; K59.09 Other constipation; K21.9 Gastro-esophageal reflux disease without esophagitis; I12.9 Hypertensive chronic kidney disease with stage 1 through stage 4 chronic kidney disease, or unspecified chronic kidney disease; M19.90 Unspecified osteoarthritis, unspecified site; F41.9 Anxiety disorder, unspecified; F32.9 Major depressive disorder, single episode, unspecified; E66.9 Obesity, unspecified; R51 Headache; R11.2 Nausea with vomiting, unspecified; D64.9 Anemia, unspecified; Z96.653 Presence of artificial knee joint, bilateral; Z79.899 Other long term (current) drug therapy; Z91.14 Patient's other noncompliance with medication regimen; Z90.49 Acquired absence of other specified parts of digestive tract; Z85.3 Personal history of malignant neoplasm of breast; Z88.6 Allergy status to analgesic agent; Z90.12 Acquired absence of left breast and nipple
CPT/HCPCS: 36415; 80053; 81001; 85025; 85027; 85610; 86140; 97116-GP; 97161-GP; 97165-GO; 99284; A9270-GY; J1200; J1650; J1885; J2270; J2405; J2765; J7030; J7050; J7120

== ENCOUNTER 2018-02-16 10:36 | Emergency (ER) | payer BC ==
[2018-02-16] MEDS ORDERED: Sodium Chloride 0.9% 10 ML Syringe FLUSH PRN ×2 (10:47→14:03)
[2018-02-16] MEDS ORDERED: Labetalol 20 MG/4 ML Syringe IVPUSH ONE (11:07)
[2018-02-16 11:22] LABS: CHLORIDE,CL 106 mmol/L (98-107); SODIUM,NA 143 mmol/L (136-145)
--- NOTE | 2018-02-16 11:40 | EDM.PDOC ---
ED HPI GENERAL MEDICAL PROBLEM - General Chief Complaint: Neuro Symptoms/Deficits Stated Complaint: Left arm numbness Time Seen by Provider: 02/16/18 10:48 Source of Information: Reports: Patient History Limitations: Reports: No Limitations - History of Present Illness INITIAL COMMENTS - FREE TEXT/NARRATIVE: Pt was brought into the emergency department this morning from the clinic after having her post hospitalization checkup. Patient was in the clinic around 10:30 AM when she started having left arm numbness tingling and weakness. Patient was transported by nursing staff to the emergency department. Patient denies having any headache, dizziness, difficulty speaking difficulty swallowing or leg numbness or tingling. The left arm is the only limb affected. Patient states that the left arm is numb and feels really heavy. She is unable to lift it on her own. Patient has an extensive history including bilateral knee done on January 30 of this month in [facility] [place], HTN, Chronic kidney disease, non compliance to medical regiments, chronic pain, breast cancer with mastectomy and chemo, hypercholesterolemia, morbid obesity, GERD, and depression. Most recent she underwent the bilateral knee replacement in [place] on January 30 and was discharged home with home health related to delayed healing and recovery in the hospital. However she was not following physical therapy recommendations and medication management and ended up being readmitted approximately a week and a half ago here in the [facility] for strength training and dehydration. Patient was discharged to follow-up with PT. Patient did develop a headache approximate 5 days ago and went into the ER in [place]. A diagnosis of a spinal headache was given patient was discharged home with no further recommendations. The above symptoms today were abrupt and witnessed by medical personnel. Last well time- 10:30am Last oral intake 8:30am Last blood thinner- eliquis 5 days ago Major surgery- bilateral knee Jan 30 2018 Onset: Sudden Quality: Reports: Other (pressure ) Severity: Moderate Improves with: Reports: None Worsens with: Reports: None - Related Data Allergies Allergy/AdvReac Type Severity Reaction Status Date / Time codeine AdvReac Mild Stomach Verified 02/16/18 11:09 Upset Home Meds: Home Meds amLODIPine [Norvasc] 5 mg PO QPM 03/07/14 [History] Calcium Citrate/Vitamin D3 [Calcium Citrate - Vit D Tablet] 1 tab PO DAILY 12/15 [History] Cholecalciferol (Vitamin D3) [Vitamin D3] 1,000 units PO DAILY 12/15/17 [History ] Etodolac [Lodine] 400 mg PO BID 12/15/17 [History] Gabapentin [Neurontin] 300 mg PO BEDTIME 12/15/17 [History] Tamoxifen [Nolvadex] 20 mg PO BEDTIME 12/15/17 [History] Acetaminophen 650 mg PO Q6H 02/09/18 [History] Apixaban [Eliquis] 2.5 mg PO BID 02/09/18 [History] Furosemide 20 mg PO DAILY 02/09/18 [History] Metoprolol Succinate [Toprol XL] 12.5 mg PO BEDTIME 02/09/18 [History] Multivitamin [Daily Regla] 1 tab PO DAILY 02/09/18 [History] Ondansetron [Zofran ODT] 4 mg PO Q4HR PRN 02/09/18 [History] Sennosides/Docusate Sodium [Senna-Docusate Sodium Tablet] 1 tab PO BID 02/09/18 [History] hydrOXYzine Pamoate [Vistaril] 25 mg PO Q4H PRN 02/09/18 [History] oxyCODONE 1 - 2 tab PO Q4HR PRN 02/09/18 [History] buPROPion [buPROPion XL] 75 mg PO QAM tab.er 02/10/18 [Rx] Past Medical History HEENT History: Reports: Impaired Vision Cardiovascular History: Reports: CAD, High Cholesterol, Hypertension Respiratory History: Reports: SOB Gastrointestinal History: Reports: Bowel Obstruction, Chronic Constipation, GERD Genitourinary History: Reports: Chronic Renal Insuffiency Other Genitourinary History: h Musculoskeletal History: Reports: Arthritis Other Musculoskeletal History: knee pain Neurological History: Reports: None Psychiatric History: Reports: Anxiety, Depression Endocrine/Metabolic History: Reports: Obesity/BMI 30+ Hematologic History: Reports: None Oncologic (Cancer) History: Reports: Breast Dermatologic History: Reports: None - Infectious Disease History Infectious Disease History: Reports: Chicken Pox - Past Surgical History HEENT Surgical History: Reports: Eye Surgery GI Surgical History: Reports: Cholecystectomy Female Surgical History: Reports: Breast Implant, Cystectomy, Mastectomy Social & Family History - Family History Cardiac: Reports: CAD, CA Musculoskeletal: Reports: Arthritis Neurological: Reports: CVA Endocrine/Metabolic: Reports: Diabetes, type II - Caffeine Use Caffeine Use: Reports: Soda - Living Situation & Occupation Living situation: Reports: , with Family (17 year old daughter) Occupation: Employed ([employer]) ED ROS GENERAL - Review of Systems Review Of Systems: See Below Constitutional: Reports: No Symptoms HEENT: Reports: No Symptoms Respiratory: Reports: No Symptoms Cardiovascular: Reports: No Symptoms (THINK IS VERY MUCH) Endocrine: Reports: No Symptoms GI/Abdominal: Reports: No Symptoms : Reports: No Symptoms Musculoskeletal: Reports: Joint Pain (bilateral knee pain recent surgery 01/30) Skin: Reports: No Symptoms Neurological: Reports: Headache (monday with ER visit to [facility]), Numbness, Weakness Psychiatric: Reports: Anxiety (Social history) Hematologic/Lymphatic: Reports: No Symptoms Immunologic: Reports: No Symptoms ED EXAM, NEURO - Physical Exam Exam: See Below Exam Limited By: No Limitations General Appearance: Alert, WD/WN, Anxious Head Exam: Atraumatic, Normocephalic Neck: Normal Inspection, Supple, Non-Tender, Full Range of Motion Respiratory/Chest: No Respiratory Distress, Lungs Clear, Normal Breath Sounds, No Accessory Muscle Use, Chest Non-Tender Cardiovascular: Normal Peripheral Pulses, Regular Rate, Rhythm, No Edema GI/Abdominal: Normal Bowel Sounds, Soft, Non-Tender, No Distention, No Mass Neurological: Alert, Normal Mood/Affect, CN II-XII Intact, Oriented x 3. No: Normal Gait (bilateral knee pain from recent surgery limited mobility. However equal bilaterally ), No Motor/Sensory Deficits (Left arm numbness, decrease sensation, tingling, drift of left arm, difficulty with anti gravity pull ) Extremities: Normal Inspection, Normal Range of Motion, Normal Capillary Refill Psychiatric: Normal Affect, Anxious Skin Exam: Warm, Dry, Intact, Normal Color Comments: NIH scale 4. Fast-ED- 2. Second NIH 5. EKG INTERPRETATION Rhythm: NSR QRS: Normal QT: Normal Comparison: NA - No Prior EKG Course - Vital Signs Last Recorded V/S: Last Vital Signs Temp 36.3 C 02/16/18 10:48 Pulse 90 02/16/18 11:15 Resp 18 02/16/18 11:15 BP 201/75 H 02/16/18 11:15 Pulse Ox 96 02/16/18 11:15 - Orders/Labs/Meds Orders: Active Orders 24 hr Category Date Time Status EKG Documentation Completion [RC] STAT Care 02/16/18 10:47 Active Head wo Cont [CT] Stat Exams 02/16/18 10:47 Taken Sodium Chloride 0.9% [Saline Flush] Med 02/16/18 14:03 Ordered 10 ml FLUSH ASDIRECTED PRN Peripheral IV Insertion Adult [OM.PC] Stat Oth 02/16/18 10:47 Ordered Peripheral IV Insertion Adult [OM.PC] Stat Oth 02/16/18 10:50 Ordered Medication Orders Sodium Chloride (Saline Flush) 10 ml FLUSH ASDIRECTED PRN PRN Reason: Keep Vein Open Labs: Laboratory Tests 02/16/18 02/16/18 02/16/18 Range/Units 10:56 10:56 10:56 WBC 6.7 (4.0-10.0) x10^3/uL RBC 3.78 L (4.00-5.50) x10^6/uL Hgb 11.3 L D (12.0-16.0) g/dL Hct 36.7 (33.0-47.0) % MCV 97.1 H (78.0-93.0) fL MCH 29.9 (26.0-32.0) pg MCHC 30.8 L (32.0-36.0) g/dL RDW Coeff of Skyler 14.6 (10.0-15.0) % Plt Count 87 L (130-400) x10^3/uL Neut % (Auto) 53.8 (50.0-80.0) % Lymph % (Auto) 30.4 (25.0-50.0) % Cass % (Auto) 8.8 (2.0-11.0) % Eos % (Auto) 5.7 H (0.0-4.0) % Baso % (Auto) 1.3 H (0.2-1.2) % PT 11.6 H (9.6-11.4) SEC INR 1.1 L (2.0-3.5) Sodium 143 (136-145) mmol/L Potassium 4.0 (3.5-5.1) mmol/L Chloride 106 (98-107) mmol/L Carbon Dioxide 25 (21-32) mmol/L Anion Gap 16.0 (10-20) mmol/L BUN 12 (7-18) mg/dL Creatinine 0.8 (0.55-1.02) mg/dL Est Cr Clr Drug Dosing 71.03 mL/min Estimated GFR (MDRD) > 60 Glucose 104 (74-106) mg/dL Calcium 8.8 (8.5-10.1) mg/dL Corrected Calcium 9.44 (8.5-10.1) mg/dL Total Bilirubin 0.7 (0.2-1.0) mg/dL AST 34 (15-37) U/L ALT 41 (14-59) U/L Alkaline Phosphatase 113 (46-116) U/L Creatine Kinase 23 L (26-192) U/L POC Troponin I (0.00-0.08) ng/mL Total Protein 7.0 (6.4-8.2) g/dL Albumin 3.2 L (3.4-5.0) g/dL Globulin 3.8 Albumin/Globulin Ratio 0.84 05/25/18 Range/Units 10:58 WBC (4.0-10.0) x10^3/uL RBC (4.00-5.50) x10^6/uL Hgb (12.0-16.0) g/dL Hct (33.0-47.0) % MCV (78.0-93.0) fL MCH (26.0-32.0) pg MCHC (32.0-36.0) g/dL RDW Coeff of Skyler (10.0-15.0) % Plt Count (130-400) x10^3/uL Neut % (Auto) (50.0-80.0) % Lymph % (Auto) (25.0-50.0) % Cass % (Auto) (2.0-11.0) % Eos % (Auto) (0.0-4.0) % Baso % (Auto) (0.2-1.2) % PT (9.6-11.4) SEC INR (2.0-3.5) Sodium (136-145) mmol/L Potassium (3.5-5.1) mmol/L Chloride (98-107) mmol/L Carbon Dioxide (21-32) mmol/L Anion Gap (10-20) mmol/L BUN (7-18) mg/dL Creatinine (0.55-1.02) mg/dL Est Cr Clr Drug Dosing mL/min Estimated GFR (MDRD) Glucose (74-106) mg/dL Calcium (8.5-10.1) mg/dL Corrected Calcium (8.5-10.1) mg/dL Total Bilirubin (0.2-1.0) mg/dL AST (15-37) U/L ALT (14-59) U/L Alkaline Phosphatase (46-116) U/L Creatine Kinase (26-192) U/L POC Troponin I 0.00 (0.00-0.08) ng/mL Total Protein (6.4-8.2) g/dL Albumin (3.4-5.0) g/dL Globulin Albumin/Globulin Ratio Meds: Medications Generic Name Dose Route Start Last Admin Trade Name Freq PRN Reason Stop Dose Admin Sodium Chloride 10 ml 02/16/18 14:03 Saline Flush FLUSH ASDIRECTED PRN Keep Vein Open Discontinued Medications Generic Name Dose Route Start Last Admin Trade Name Freq PRN Reason Stop Dose Admin Labetalol HCl 20 mg 02/16/18 11:07 Normodyne IVPUSH 02/16/18 11:08 NOW ONE Protocol Sodium Chloride 10 ml 02/16/18 10:47 Saline Flush FLUSH ASDIRECTED PRN Keep Vein Open Departure - Departure Time of Disposition: 11:10 Disposition: DC/Tfer to Acute Hospital 02 Condition: Fair Clinical Impression: Subarachnoid hemorrhage, Left arm numbness Cerebrovascular accident (CVA) Qualifiers: CVA mechanism: thrombosis Precerebral and cerebral artery: unspecified cerebral artery Qualified Code(s): I63.30 - Cerebral infarction due to thrombosis of unspecified cerebral artery - Discharge Information Referrals: Amna Justin MD [Primary Care Provider] - Forms: ED Department Discharge, Interfacility Transfer EMTALA - Problem List Review Problem List Initiated/Reviewed/Updated: Yes - My Orders Last 24 Hours: My Active Orders 02/16/18 10:47 EKG Documentation Completion [RC] STAT Head wo Cont [CT] Stat Peripheral IV Insertion Adult [OM.PC] Stat 02/16/18 10:50 Peripheral IV Insertion Adult [OM.PC] Stat 02/16/18 14:03 Sodium Chloride 0.9% [Saline Flush] 10 ml FLUSH ASDIRECTED PRN - Assessment/Plan Last 24 Hours: My Active Orders 02/16/18 10:47 EKG Documentation Completion [RC] STAT Head wo Cont [CT] Stat Peripheral IV Insertion Adult [OM.PC] Stat 02/16/18 10:50 Peripheral IV Insertion Adult [OM.PC] Stat 02/16/18 14:03 Sodium Chloride 0.9% [Saline Flush] 10 ml FLUSH ASDIRECTED PRN Assessment:: 1. Left arm numbness starting at 10:30am in clinic Plan: 1. Stroke code called upon pts arrival at the ED 10:48 2. IV x2 3. EKG completed in ER 4. Labs completed in ER with results discussed with the pt. 5. NIH-4, repeat score 5, Fast-ED 2. 6. CT head without contrast- small amount of acute subarachnoid hemorrhage within numerous sulci of the frontal lobes bilaterally. Findings are centered in the superior aspect of the frontal lobes adjacent to an abnormal appearing superior sagittal sinus most consistent with thrombosis. Reading at [address] Chavez [facility] at [address] results regarding pt's status and possible TPA if CT findings are negative. It was recommended if CT does come back negative TPA could be given with transfer to higher level of care. Once CT results came back with above findings. Dr. Chavez was contacted as she recommended emergent transfer for CTA and possible thrombectomy of possible clot. Ambulance was contacted and pt sent via ALS transfer. 8. Did discuss elevated BP with Dr. Willard which she advised holding off of medication management at this time regarding elevation. 9. Pt was update along with Daughter who was at the bedside. All questions and concerns were given.
[2018-02-16 12:09] VITALS: BP 201/75
== END 2018-02-16 11:15 | disposition short-term general hospital (02) ==
LOC: VM.ED 10:36
DX: I63.30 Cerebral infarction due to thrombosis of unspecified cerebral artery (principal); I60.9 Nontraumatic subarachnoid hemorrhage, unspecified; R29.704 NIHSS score 4; I12.9 Hypertensive chronic kidney disease with stage 1 through stage 4 chronic kidney disease, or unspecified chronic kidney disease; N18.9 Chronic kidney disease, unspecified; E78.00 Pure hypercholesterolemia, unspecified; Z88.5 Allergy status to narcotic agent; Z79.899 Other long term (current) drug therapy
CPT/HCPCS: 70450; 80053; 82550; 84484; 85025; 85610; 93005; 99285